=== PATIENT | male | born 1940 | race American Indian/Alaskan Native ===

== ENCOUNTER 2017-11-08 07:41 | Inpatient (IN) | payer MEDICARE ==
--- NOTE | 2017-11-08 07:57 | C.PDOC ---
History Of Present Illness 76-year-old male, PMHx includes Hypertension, presents to the emergency department with complaints of recurring episodes of "feeling woozy." Patient states he has been experiencing these symptoms intermittently for the past two weeks. States he has not experienced these symptoms in the past. Patient is on Amlodopine daily and last dose was yesterday. Denies chest pain, shortness of breath, nausea/vomiting, back pain or any other associated symptoms. 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 PS INTERMIT SX NEW ONSET X 2 WEEKS. NO ASSOC PAIN. ON AMLODIPINE DAILY, LAST DOSE YEST. COMPLIANT W MEDS. DENIES OTHER ASSOC SX. EXAM MOD DIST NONTOXIC HEENT NEG LUNGS CTA B/L NO W/R/R CV RRR, JAMIR STRONG PALP RADIAL NO EDEMA WARM DRY REMAINDER NEG Time Seen by Provider: 11/08/17 07:45 History Per: Patient History/Exam Limitations: no limitations Past Medical History Reviewed: Historical Data, Nursing Documentation, Vital Signs Vital Signs: Last Vital Signs Temp 98.4 F 11/10/17 00:00 Pulse 84 11/10/17 06:00 Resp 14 11/10/17 06:00 BP 177/84 H 11/10/17 05:29 Pulse Ox 97 11/10/17 06:00 Family History: States: Unknown Family Hx Review Of Systems Except As Marked, All Systems Reviewed And Found Negative. Constitutional: Negative for: Fever, Chills Cardiovascular: Negative for: Chest Pain, Palpitations Respiratory: Negative for: Cough, Shortness of Breath Gastrointestinal: Negative for: Vomiting Musculoskeletal: Negative for: Back Pain Neurological: Negative for: Weakness, Numbness, Headache, Dizziness Physical Exam - Physical Exam Appears: Non-toxic, No Acute Distress Skin: Warm, Dry, No Rash Head: Normacephalic Eye(s): bilateral: PERRL, EOMI Nose: Normal Oral Mucosa: Moist Lips: Normal Appearing Neck: Normal ROM Cardiovascular: Rhythm Regular (Bradycardia), No Murmur Respiratory: Normal Breath Sounds, No Accessory Muscle Use Extremity: Normal ROM, No Pedal Edema, No Deformity, No Swelling Pulses: Left Radial: Normal, Right Radial: Normal Neurological/Psych: Oriented x3, Normal Speech ED Course And Treatment - Laboratory Results Result Diagrams: 11/10/17 06:11 11/10/17 06:11 Progress - Re-Evaluation Re-evaluation Note: 11/08/17 07:59 d/w dr rodriguez [employer] PATH[employer]: NOT IMMEDIATELY AVAIL FOR ER AVAIL. ADVISES CONSULT ICU FOR TRANSVENOUS PM 11/08/17 08:03 D/W DR MALDONADO AWARE OF ER FINDINGS ACCEPTS FOR IMMEDIATE ADMISSION TO ICU. RESULTS PENDING. 11/08/17 08:09 PENDING CALLBACK PMD 11/08/17 08:55 D/W DR WOO AWARE OF PT STATUS - Data Reviewed Data Reviewed: Lab, Diagnostic imaging, EKG, Old records - Critical Care Citical Care: Excluding Proc Time Critical Care Time: 90 minutes - Continuity of Care Discussed patient case with:: Patient, PMD Disposition Counseled Patient/Family Regarding: Studies Performed, Diagnosis - Disposition Disposition: HOSPITALIZED Disposition Time: 08:10 Condition: CRITICAL - POA Present On Arrival: None - Clinical Impression Clinical Impression: Third degree AV block, Hypotension - Scribe Statement The provider has reviewed the documentation as recorded by the Scribe (Ksenia Brewer) All medical record entries made by the Scribe were at my direction and personally dictated by me. I have reviewed the chart and agree that the record accurately reflects my personal performance of the history, physical exam, medical decision making, and the department course for this patient. I have also personally directed, reviewed, and agree with the discharge instructions and disposition. Decision To Admit - Pt Status Changed To: Hospital Disposition Of: Inpatient - Admit Certification Admit to Inpatient:: After my assessment, the patient will require hospitalization for at least two midnights. This is because of the severity of symptoms shown, intensity of services needed, and/or the medical risk in this patient being treated as an outpatient. - InPatient: Physician Admission Certification: I certify that this patient requires 2 or more midnights of care for the following reason:: SEE NOTE - . Bed Request Type: ICU Admitting Physician: Aileen Woo Patient Diagnosis: Third degree AV block, Hypotension
[2017-11-08] MEDS ORDERED: Sodium Chloride 0.9% 1,000 ML IV ONE (08:05)
[2017-11-08] MEDS ORDERED: Atropine Sulfate 1 mg/ml Vial (1 ml) IVP ONE (08:08)
--- NOTE | 2017-11-08 08:36 | RAD ---
PROCEDURE: CHEST RADIOGRAPH, 1 VIEW HISTORY: Palpations COMPARISON: None available FINDINGS: LUNGS: Clear. PLEURA: No pneumothorax or pleural fluid seen. CARDIOVASCULAR: Normal. OSSEOUS STRUCTURES: No significant abnormalities. VISUALIZED UPPER ABDOMEN: Normal. OTHER FINDINGS: None. IMPRESSION: No active disease.
[2017-11-08 08:45] LABS: INR 1.1; PROTHROMBIN TIME 12.8 SECONDS (9.7-12.2)
[2017-11-08 08:47] LABS: ALB/GLOB RATIO 1.1 (1.0-2.1); ALBUMIN 3.8 g/dL (3.5-5.0); CALCIUM 9.1 mg/dl (8.6-10.4); GFR AFRICAN-AMERICAN > 60; GFR NON-AFRICAN AMERICAN > 60
[2017-11-08 08:50] LABS: ALT/SGPT 15 U/L (21-72); AST/SGOT 20 U/L (17-59); BLOOD UREA NITROGEN 18 mg/dL (9-20)
[2017-11-08] MEDS ORDERED: Aspirin 325 mg EC Tablets PO STA (09:07)
[2017-11-08] MEDS ORDERED: DOPamine 400mg/250ml D5W 400 MG/250 ML BAG IV ONE (09:08)
[2017-11-08] MEDS ORDERED: DOPamine 400mg/250ml D5W 400 MG/250 ML BAG IV PRN (09:45)
--- NOTE | 2017-11-08 10:16 | RAD ---
HISTORY: transvenous pacemaker placed COMPARISON: Chest radiograph performed approximately 1.5 hours prior FINDINGS: LUNGS: No active pulmonary disease. PLEURA: No significant pleural effusion identified, no pneumothorax apparent. CARDIOVASCULAR: Cardiomediastinal silhouette stably prominent. OSSEOUS STRUCTURES: Unchanged. VISUALIZED UPPER ABDOMEN: Normal. OTHER FINDINGS: New right internal jugular access transvenous pacemaker. IMPRESSION: New right internal jugular access transvenous pacemaker. No pneumothorax. No other significant interval change.
--- NOTE | 2017-11-08 10:36 | CP.PCM.CON ---
<[place] - Last Filed: 11/08/17 10:59> History of Present Illness - History of Present Illness History of Present Illness: PGY-1 Critical Care Consult Note for Dr. Sinclair Reason for consult: 3rd degree heart block This is a 76 year old male with PMHx HTN, DM, HLD who presented complaining of dizziness and vague chest discomfort. This began early this morning after the patient woke up from sleep. Patient denies any exacerbating or relieving factors. Denies chest pain stating that he just feels a very strange sensation on the left side of his chest. Denies palpitations, shortness of breath, abdominal pain. Patient came to the emergency room where he was found to be in third degree heart block. Patient admitted directly to ICU for temporary transvenous pacemaker. PMHx: HTN, DM, HLD PSHx: Unspecified prostate surgery and right knee surgery Allergies: NKDA Social: On and off smoker for over 25 years. Less than 1 ppd. Occasional alcohol. Denies drugs. Lives with . PMD: Dr. Woo Home meds: Of the medications he remembers, he is taking Norvasc, Metformin, Simvastatin, Glimepiride Review of Systems - Constitutional Constitutional: absent: Chills, Fever - EENT Eyes: absent: Change in Vision Ears: absent: Decreased Hearing Nose/Mouth/Throat: absent: Nasal Congestion - Cardiovascular Cardiovascular: Other ("woozy" feeling in the chest). absent: Chest Pain - Respiratory Respiratory: absent: Dyspnea - Gastrointestinal Gastrointestinal: absent: Abdominal Pain - Genitourinary Genitourinary: absent: Dysuria - Musculoskeletal Musculoskeletal: Neck Pain (right sided) - Integumentary Integumentary: absent: Rash - Neurological Neurological: Dizziness. absent: Weakness - Psychiatric Psychiatric: Anxiety - Endocrine Endocrine: absent: Palpitations Past Patient History - Past Social History Smoking Status: Light Smoker < 10 Cigarettes Daily - CARDIAC Hx Hypercholesterolemia: Yes Hx Hypertension: Yes - ENDOCRINE/METABOLIC Hx Diabetes Mellitus Type 2: Yes - PSYCHIATRIC Hx Substance Use: No - SURGICAL HISTORY Hx Surgeries: Yes Hx Orthopedic Surgery: Yes (L knee) Other/Comment: TURP - ANESTHESIA Hx Anesthesia: Yes Hx Anesthesia Reactions: No Meds Allergies/Adverse Reactions: Allergies Allergy/AdvReac Type Severity Reaction Status Date / Time No Known Allergies Allergy Unverified 11/08/17 07:59 - Medications Medications: Current Medications Insulin Human Regular (Novolin R) 0 unit SC ACHS [facility] PRN Reason: Protocol Physical Exam - Constitutional Appears: In Acute Distress (mild distress) - Head Exam Head Exam: ATRAUMATIC, NORMOCEPHALIC - Eye Exam Eye Exam: EOMI, PERRL - ENT Exam ENT Exam: Mucous Membranes Moist - Respiratory Exam Respiratory Exam: Clear to Auscultation Bilateral. absent: Rales, Rhonchi, Wheezes - Cardiovascular Exam Cardiovascular Exam: Bradycardia, +S1, +S2 - GI/Abdominal Exam GI & Abdominal Exam: Normal Bowel Sounds, Soft. absent: Tenderness - Extremities Exam Extremities exam: Positive for: pedal pulses present. Negative for: pedal edema - Neurological Exam Neurological exam: Alert, CN II-XII Intact, Oriented x3 - Psychiatric Exam Psychiatric exam: Normal Affect, Normal Mood - Skin Skin Exam: Dry, Warm Results - Vital Signs Recent Vital Signs: Last Vital Signs Temp 98.1 F 11/08/17 07:52 Pulse 30 L 11/08/17 07:52 Resp 10 L 11/08/17 07:52 BP 73/23 L 11/08/17 07:52 Pulse Ox 100 11/08/17 07:52 - Labs Result Diagrams: 11/08/17 08:29 Labs: Laboratory Results - last 24 hr 11/08/17 11/08/17 08:29 08:29 PT 12.8 H INR 1.1 APTT 21 Sodium 142 Potassium 4.3 Chloride 106 Carbon Dioxide 21 L Anion Gap 20 BUN 18 Creatinine 1.1 Est GFR ( Amer) > 60 Est GFR (Non-Af Amer) > 60 Random Glucose 215 H Calcium 9.1 Total Bilirubin 0.5 AST 20 ALT 15 L Alkaline Phosphatase 56 Troponin I 0.0140 Total Protein 7.4 Albumin 3.8 Globulin 3.6 Albumin/Globulin Ratio 1.1 Assessment & Plan - Assessment and Plan (Free Text) Assessment: This is a 76 year old male with PMHx HTN, DM, HLD who presented complaining of dizziness and vague chest discomfort. 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 Neuro Awake, verbal Cardio Normotensive Holding home Norvasc for now STAT echo Temporary pacemaker inserted EP Dr. Macedo consulted Pulm Saturating well on room air GI Pepcid 20 mg IV daily Carbohydrate consistent diet Endocrine Regular ISS Accuchecks Heme/onc Monitor H/H Prophylaxis Lovenox 40 mg SC daily SCDs Pepcid 20 mg IV daily Seen and discussed with Dr. Sinclair <Roge Sinclair - Last Filed: 11/08/17 16:15> Meds - Medications Medications: Current Medications Enoxaparin Sodium (Lovenox) 90 mg SC Q12 [facility] Insulin Human Regular (Novolin R) 0 unit SC ACHS A[facility] PRN Reason: Protocol Last Admin: 11/08/17 12:16 Dose: 2 unit Results - Vital Signs Recent Vital Signs: Last Vital Signs Temp 99.1 F 11/08/17 16:00 Pulse 67 11/08/17 15:34 Resp 17 11/08/17 15:34 BP 123/72 11/08/17 15:34 Pulse Ox 97 11/08/17 15:34 - Labs Result Diagrams: 11/08/17 12:03 11/08/17 08:29 Labs: Laboratory Results - last 24 hr 11/08/17 11/08/17 11/08/17 08:29 08:29 11:30 WBC RBC Hgb Hct MCV MCH MCHC RDW Plt Count MPV Neut % (Auto) Lymph % (Auto) [place] % (Auto) Eos % (Auto) Baso % (Auto) Neut # (Auto) Lymph # (Auto) [place] # (Auto) Eos # (Auto) Baso # (Auto) PT 12.8 H INR 1.1 APTT 21 Sodium 142 Potassium 4.3 Chloride 106 Carbon Dioxide 21 L Anion Gap 20 BUN 18 Creatinine 1.1 Est GFR ( Amer) > 60 Est GFR (Non-Af Amer) > 60 POC Glucose (mg/dL) 198 H Random Glucose 215 H Calcium 9.1 Total Bilirubin 0.5 AST 20 ALT 15 L Alkaline Phosphatase 56 Troponin I 0.0140 Total Protein 7.4 Albumin 3.8 Globulin 3.6 Albumin/Globulin Ratio 1.1 11/08/17 12:03 WBC 5.6 RBC 3.71 L Hgb 10.7 L Hct 32.3 L MCV 86.9 MCH 28.7 MCHC 33.1 RDW 14.9 H Plt Count 144 MPV 8.4 Neut % (Auto) 79.4 H Lymph % (Auto) 14.0 L [place] % (Auto) 5.4 Eos % (Auto) 0.2 Baso % (Auto) 1.0 Neut # (Auto) 4.4 Lymph # (Auto) 0.8 L [place] # (Auto) 0.3 Eos # (Auto) 0.0 Baso # (Auto) 0.1 PT INR APTT Sodium Potassium Chloride Carbon Dioxide Anion Gap BUN Creatinine Est GFR ( Amer) Est GFR (Non-Af Amer) POC Glucose (mg/dL) Random Glucose Calcium Total Bilirubin AST ALT Alkaline Phosphatase Troponin I Total Protein Albumin Globulin Albumin/Globulin Ratio Attending/Attestation - Attestation I have personally seen and examined this patient.: Yes I have fully participated in the care of the patient.: Yes I have reviewed all pertinent clinical information: Yes Notes (Text): 11/08/17 16:13 patient seen and examined 76-year-old male presented with chest discomfort and found to be in third- degree heart block Status post transvenous pacemaker insertion Hemodynamically stable For permanent pacemaker tomorrow Case discussed with cardiology Continue present treatment
[2017-11-08] MEDS ORDERED: Enoxaparin 40 mg Syringe SC SCH (11:00)
[2017-11-08 12:07] LABS: BASO # 0.1 K/uL (0.0-0.2); EOS % 0.2 % (0.0-4.0); HEMOGLOBIN 10.7 g/dL (12.0-18.0); LYMPH # 0.8 K/uL (1.0-4.3); MEAN CELL VOLUME 86.9 fL (80.0-94.0); MEAN CORPUSCULAR HEMOGLOBIN 28.7 pg (27.0-31.0); MEAN CORPUSCULAR HGB CONC 33.1 g/dL (33.0-37.0); MEAN PLATELET VOLUME 8.4 fL (7.2-11.7); MONO # 0.3 K/uL (0.0-0.8); MONO % 5.4 % (0.0-10.0); NEUT # 4.4 K/uL (1.8-7.0); NEUT % 79.4 % (50.0-75.0); NRBC % 0.1 % (0.0-2.0); RBC 3.71 Mil/uL (4.40-5.90); RED CELL DISTRIBUTION WIDTH 14.9 % (11.5-14.5); WHITE BLOOD COUNT 5.6 K/uL (4.8-10.8)
[2017-11-08] MEDS: (Novolin R) Insulin Human Regular 100 units/ml vial SC SCH ×3 (12:16→22:00)
--- NOTE | 2017-11-08 14:29 | PCM.PROC ---
Procedures - Additional Procedures Additional Procedures: external pacing Progress: Patient signed informed consent for transvenous pacing. Sterile protocol followed and transvenous pacer placed in the right IJ. Patient tolerated the procedure well.
[2017-11-08 16:36] LABS: TROPONIN I 0.034 ng/mL (0.00-0.120)
--- NOTE | 2017-11-08 16:53 | CARD ---
APPROVED REPORT EXAM: Two-dimensional and M-mode echocardiogram with Doppler and color Doppler. Other Information Quality : GoodRhythm : INDICATION Chest Pain 3rd degree heartblock hypotension 2D DIMENSIONS IVSd1.2 (0.7-1.1cm)LVDd5.0 (3.9-5.9cm) PWd1.0 (0.7-1.1cm)LVDs3.9 (2.5-4.0cm) FS (%) 21.0 %LVEF (%)40.0 (>50%) Mitral Valve MV E Upmfzrpb29.7cm/sMV A Znwpkrqv861.6cm/sE/A ratio0.6 TDI E/Lateral E'0.0E/Medial E'0.0 Tricuspid Valve TR Peak Arsfqjmh149pw/sTR Peak Gr.28mmHg LEFT VENTRICLE The left ventricle is normal size. There is borderline concentric left ventricular hypertrophy. The systolic function is mildly impaired. Infero-basal hypokinesis Transmitral Doppler flow pattern is Grade I-abnormal relaxation pattern. RIGHT VENTRICLE The right ventricle is normal size. There is normal right ventricular wall thickness. The right ventricular systolic function is normal. ATRIA The left atrium is borderline dilated. The right atrium size is normal. AORTIC VALVE The aortic valve is moderately thickened. No aortic regurgitation is present. There is no aortic valvular stenosis. MITRAL VALVE The mitral valve is mildly thickened. There is no mitral valve stenosis. Mitral regurgitation is trace. TRICUSPID VALVE The tricuspid valve is normal in structure. There is trace tricuspid regurgitation. GREAT VESSELS The aortic root is normal in size. The IVC was not visualized. PERICARDIAL EFFUSION There is no pericardial effusion. <Conclusion> The left ventricle is normal size. There is borderline concentric left ventricular hypertrophy. The systolic function is mildly impaired. Infero-basal hypokinesis Transmitral Doppler flow pattern is Grade I-abnormal relaxation pattern.
[2017-11-08 17:06] LABS: CK-MB 1.32 ng/mL (0.0-3.38)
--- NOTE | 2017-11-08 19:39 | CP.PCM.CON ---
History of Present Illness - History of Present Illness History of Present Illness: Cardiac EP consult Re: Dizziness AV block Admitted with two week history of intermittent dizziness unrelated to position; denied loss of consciousness headache vomiting diplopia dysarthria palpitations chest pain Past medical history significant for Systemic hypertensipon hyperlipidemia Diabetes Mellitus Thyroid enlargement Past surgery Prostate and knee Smokes; denied substance abuse Retired lives with his Medicaitons: norvasc metformin Exam Afebrile Pulse 60 Paced rhythm Normal venous pressures [employer] goiter; non tender Right IJ transvenous pacemaker Clear lungs ?PMI Varying heart sounds intensity No edema DP ? EKG: sinus tachycardia; high grade AV block; AV dissociation; cRBBB left fascicular block Pacemaker: no underlying rhythm @ 30 beats per minute Complete heart block Pacing capture: 1V rate/amp: 60 at 20ma; sensing at 12 Past Patient History - Past Medical History & Family History Past Medical History?: Yes - Past Social History Smoking Status: Light Smoker < 10 Cigarettes Daily - CARDIAC Hx Hypercholesterolemia: Yes Hx Hypertension: Yes - ENDOCRINE/METABOLIC Hx Diabetes Mellitus Type 2: Yes - MUSCULOSKELETAL/RHEUMATOLOGICAL Hx Falls: No - PSYCHIATRIC Hx Substance Use: No - SURGICAL HISTORY Hx Surgeries: Yes Hx Orthopedic Surgery: Yes (L knee) Other/Comment: TURP - ANESTHESIA Hx Anesthesia: Yes Hx Anesthesia Reactions: No Meds Allergies/Adverse Reactions: Allergies Allergy/AdvReac Type Severity Reaction Status Date / Time No Known Allergies Allergy Unverified 11/08/17 07:59 - Medications Medications: Current Medications Enoxaparin Sodium (Lovenox) 90 mg SC Q12 [facility] Insulin Human Regular (Novolin R) 0 unit SC ACHS ANALI PRN Reason: Protocol Last Admin: 11/08/17 17:33 Dose: Not Given Lisinopril (Zestril) 2.5 mg PO DAILY [facility] Last Admin: 11/08/17 18:22 Dose: 2.5 mg Results - Vital Signs Recent Vital Signs: Last Vital Signs Temp 99.1 F 11/08/17 16:00 Pulse 66 11/08/17 19:10 Resp 17 11/08/17 19:10 BP 127/71 11/08/17 18:34 Pulse Ox 98 11/08/17 19:10 - Labs Result Diagrams: 11/08/17 12:03 11/08/17 08:29 Labs: Laboratory Results - last 24 hr 11/08/17 11/08/17 11/08/17 08:29 08:29 11:30 WBC RBC Hgb Hct MCV MCH MCHC RDW Plt Count MPV Neut % (Auto) Lymph % (Auto) [place] % (Auto) Eos % (Auto) Baso % (Auto) Neut # (Auto) Lymph # (Auto) [place] # (Auto) Eos # (Auto) Baso # (Auto) PT 12.8 H INR 1.1 APTT 21 Sodium 142 Potassium 4.3 Chloride 106 Carbon Dioxide 21 L Anion Gap 20 BUN 18 Creatinine 1.1 Est GFR ( Amer) > 60 Est GFR (Non-Af Amer) > 60 POC Glucose (mg/dL) 198 H Random Glucose 215 H Calcium 9.1 Total Bilirubin 0.5 AST 20 ALT 15 L Alkaline Phosphatase 56 Total Creatine Kinase CK-MB (Mass) Troponin I 0.0140 Total Protein 7.4 Albumin 3.8 Globulin 3.6 Albumin/Globulin Ratio 1.1 11/08/17 11/08/17 11/08/17 12:03 15:57 16:15 WBC 5.6 RBC 3.71 L Hgb 10.7 L Hct 32.3 L MCV 86.9 MCH 28.7 MCHC 33.1 RDW 14.9 H Plt Count 144 MPV 8.4 Neut % (Auto) 79.4 H Lymph % (Auto) 14.0 L [place] % (Auto) 5.4 Eos % (Auto) 0.2 Baso % (Auto) 1.0 Neut # (Auto) 4.4 Lymph # (Auto) 0.8 L [place] # (Auto) 0.3 Eos # (Auto) 0.0 Baso # (Auto) 0.1 PT INR APTT Sodium Potassium Chloride Carbon Dioxide Anion Gap BUN Creatinine Est GFR ( Amer) Est GFR (Non-Af Amer) POC Glucose (mg/dL) 86 Random Glucose Calcium Total Bilirubin AST ALT Alkaline Phosphatase Total Creatine Kinase 86 CK-MB (Mass) 1.32 Troponin I 0.0340 Total Protein Albumin Globulin Albumin/Globulin Ratio Assessment & Plan - Assessment and Plan (Free Text) Assessment: Mr. Lowe presented with dizziness and high grade AV block on a background of an underlying conduction abnormality suggestive of chronicity and irreversibility The etiogenesis is likely degenerative; vascular risk factors warrant exclusion of coronary disease; thyroid disease is likely incidental and or have a tangential role If the AV block persists he would be a candidate for a permanent pacemaker assuming normal LV systolic function Of note he is dependant on pacing; would be diligent in preserving the lead position and avoid excessive arm/neck movements Plan: Echocardiogram Thyroid function Cardiac cath Rest as outlined above
--- NOTE | 2017-11-08 21:47 | CP.PCM.CON ---
History of Present Illness - History of Present Illness History of Present Illness: 76 Male with hx of HTN, DM 2, hyperlipidemia admitted with Complete Heart Block Sx of dizziness since last 2 weeks TVP placed by Dr. Sinclair Patient hemodynamically stbale ECHO: Inferior wall hypokinesis EP Consult with Dr. Macedo appreciated For cath tomorrow PMHx: HTN, DM, HLD PSHx: Unspecified prostate surgery and right knee surgery Allergies: NKDA Social: On and off smoker for over 25 years. Less than 1 ppd. Occasional alcohol. Denies drugs. Lives with . PMD: Dr. Woo Home meds: Of the medications he remembers, he is taking Norvasc, Metformin, Simvastatin, Glimepiride Review of Systems - Constitutional Constitutional: absent: Chills, Fever - EENT Eyes: absent: Change in Vision Ears: absent: Decreased Hearing Nose/Mouth/Throat: absent: Nasal Congestion - Cardiovascular Cardiovascular: Other ("woozy" feeling in the chest). absent: Chest Pain - Respiratory Respiratory: absent: Dyspnea - Gastrointestinal Gastrointestinal: absent: Abdominal Pain - Genitourinary Genitourinary: absent: Dysuria - Musculoskeletal Musculoskeletal: Neck Pain (right sided) - Integumentary Integumentary: absent: Rash - Neurological Neurological: Dizziness. absent: Weakness - Psychiatric Psychiatric: Anxiety - Endocrine Endocrine: absent: Palpitations Physical Exam - Constitutional Appears: In Acute Distress (mild distress) - Head Exam Head Exam: ATRAUMATIC, NORMOCEPHALIC - Eye Exam Eye Exam: EOMI, PERRL - ENT Exam ENT Exam: Mucous Membranes Moist - Respiratory Exam Respiratory Exam: Clear to Auscultation Bilateral. absent: Rales, Rhonchi, Wheezes - Cardiovascular Exam Cardiovascular Exam: Bradycardia, +S1, +S2 - GI/Abdominal Exam GI & Abdominal Exam: Normal Bowel Sounds, Soft. absent: Tenderness - Extremities Exam Extremities exam: Positive for: pedal pulses present. Negative for: pedal edema - Neurological Exam Neurological exam: Alert, CN II-XII Intact, Oriented x3 - Psychiatric Exam Psychiatric exam: Normal Affect, Normal Mood - Skin Skin Exam: Dry, Warm Past Patient History - Past Medical History & Family History Past Medical History?: Yes - Past Social History Smoking Status: Light Smoker < 10 Cigarettes Daily - CARDIAC Hx Hypercholesterolemia: Yes Hx Hypertension: Yes - ENDOCRINE/METABOLIC Hx Diabetes Mellitus Type 2: Yes - MUSCULOSKELETAL/RHEUMATOLOGICAL Hx Falls: No - PSYCHIATRIC Hx Substance Use: No - SURGICAL HISTORY Hx Surgeries: Yes Hx Orthopedic Surgery: Yes (L knee) Other/Comment: TURP - ANESTHESIA Hx Anesthesia: Yes Hx Anesthesia Reactions: No Meds Allergies/Adverse Reactions: Allergies Allergy/AdvReac Type Severity Reaction Status Date / Time No Known Allergies Allergy Unverified 11/08/17 07:59 - Medications Medications: Current Medications Enoxaparin Sodium (Lovenox) 90 mg SC Q12 [facility] Insulin Human Regular (Novolin R) 0 unit SC ACHS ANALI PRN Reason: Protocol Last Admin: 11/08/17 17:33 Dose: Not Given Lisinopril (Zestril) 2.5 mg PO DAILY [facility] Last Admin: 11/08/17 18:22 Dose: 2.5 mg Results - Vital Signs Recent Vital Signs: Last Vital Signs Temp 99.1 F 11/08/17 16:00 Pulse 66 11/08/17 19:10 Resp 17 11/08/17 19:10 BP 127/71 11/08/17 18:34 Pulse Ox 98 11/08/17 19:10 - Labs Result Diagrams: 11/08/17 12:03 11/08/17 08:29 Labs: Laboratory Results - last 24 hr 11/08/17 11/08/17 11/08/17 08:29 08:29 11:30 WBC RBC Hgb Hct MCV MCH MCHC RDW Plt Count MPV Neut % (Auto) Lymph % (Auto) [place] % (Auto) Eos % (Auto) Baso % (Auto) Neut # (Auto) Lymph # (Auto) [place] # (Auto) Eos # (Auto) Baso # (Auto) PT 12.8 H INR 1.1 APTT 21 Sodium 142 Potassium 4.3 Chloride 106 Carbon Dioxide 21 L Anion Gap 20 BUN 18 Creatinine 1.1 Est GFR ( Amer) > 60 Est GFR (Non-Af Amer) > 60 POC Glucose (mg/dL) 198 H Random Glucose 215 H Calcium 9.1 Total Bilirubin 0.5 AST 20 ALT 15 L Alkaline Phosphatase 56 Total Creatine Kinase CK-MB (Mass) Troponin I 0.0140 Total Protein 7.4 Albumin 3.8 Globulin 3.6 Albumin/Globulin Ratio 1.1 11/08/17 11/08/17 11/08/17 12:03 15:57 16:15 WBC 5.6 RBC 3.71 L Hgb 10.7 L Hct 32.3 L MCV 86.9 MCH 28.7 MCHC 33.1 RDW 14.9 H Plt Count 144 MPV 8.4 Neut % (Auto) 79.4 H Lymph % (Auto) 14.0 L [place] % (Auto) 5.4 Eos % (Auto) 0.2 Baso % (Auto) 1.0 Neut # (Auto) 4.4 Lymph # (Auto) 0.8 L [place] # (Auto) 0.3 Eos # (Auto) 0.0 Baso # (Auto) 0.1 PT INR APTT Sodium Potassium Chloride Carbon Dioxide Anion Gap BUN Creatinine Est GFR ( Amer) Est GFR (Non-Af Amer) POC Glucose (mg/dL) 86 Random Glucose Calcium Total Bilirubin AST ALT Alkaline Phosphatase Total Creatine Kinase 86 CK-MB (Mass) 1.32 Troponin I 0.0340 Total Protein Albumin Globulin Albumin/Globulin Ratio 11/08/17 21:06 WBC RBC Hgb Hct MCV MCH MCHC RDW Plt Count MPV Neut % (Auto) Lymph % (Auto) [place] % (Auto) Eos % (Auto) Baso % (Auto) Neut # (Auto) Lymph # (Auto) [place] # (Auto) Eos # (Auto) Baso # (Auto) PT INR APTT Sodium Potassium Chloride Carbon Dioxide Anion Gap BUN Creatinine Est GFR ( Amer) Est GFR (Non-Af Amer) POC Glucose (mg/dL) 211 H Random Glucose Calcium Total Bilirubin AST ALT Alkaline Phosphatase Total Creatine Kinase CK-MB (Mass) Troponin I Total Protein Albumin Globulin Albumin/Globulin Ratio Assessment & Plan - Assessment and Plan (Free Text) Assessment: This is a 76 year old male with PMHx HTN, DM, HLD who presented complaining of dizziness and vague chest discomfort. 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 Neuro Awake, verbal Cardio TVP in place Cath in am Pulm Saturating well on room air GI Pepcid 20 mg IV daily Carbohydrate consistent diet Endocrine Regular ISS Accuchecks Heme/onc Monitor H/H Prophylaxis Lovenox 40 mg SC daily SCDs Pepcid 20 mg IV daily
[2017-11-08] MEDS: Enoxaparin 100 mg Syringe SC SCH (22:00)
[2017-11-09 01:17] LABS: CK-MB 1.21 ng/mL (0.0-3.38)
[2017-11-09 01:19] LABS: TROPONIN I 0.038 ng/mL (0.00-0.120)
[2017-11-09 06:12] LABS: BASO % 0.5 % (0.0-2.0); EOS % 0.8 % (0.0-4.0); HEMOGLOBIN 10.2 g/dL (12.0-18.0); LYMPH # 1.6 K/uL (1.0-4.3); LYMPH % 29.9 % (20.0-40.0); MEAN CELL VOLUME 86.6 fL (80.0-94.0); MEAN CORPUSCULAR HEMOGLOBIN 28.7 pg (27.0-31.0); MEAN CORPUSCULAR HGB CONC 33.2 g/dL (33.0-37.0); MEAN PLATELET VOLUME 8.8 fL (7.2-11.7); MONO # 0.6 K/uL (0.0-0.8); MONO % 11.3 % (0.0-10.0); NEUT # 3.1 K/uL (1.8-7.0); NEUT % 57.5 % (50.0-75.0); NRBC % 0.1 % (0.0-2.0); RBC 3.54 Mil/uL (4.40-5.90); RED CELL DISTRIBUTION WIDTH 14.9 % (11.5-14.5); WHITE BLOOD COUNT 5.3 K/uL (4.8-10.8)
--- NOTE | 2017-11-09 06:26 | HP ---
HISTORY OF PRESENT ILLNESS: Mr. Lowe is a 76-year-old male admitted to the hospital with a chief complaint of weakness, fatigue, tiredness, dizziness. The patient was found to be in Afib. Patient admitted to the hospital. Patient has a pacemaker placed, and the patient has hypertension and he is a nonsmoker. PHYSICAL EXAMINATION: GENERAL: The patient is awake, alert, and oriented. VITAL SIGNS: Pulse is 70. HEENT: Within normal limits. NECK: Supple. CARDIOPULMONARY: Symmetrical. HEART: Irregular. ABDOMEN: Soft. EXTREMITIES: No edema. ASSESSMENT AND PLAN: Status post pacemaker in the right side of the neck. The patient is suffering from right heart block. The patient admitted to ICU monitoring. Cardiology consult. Aileen Woo MD
[2017-11-09 06:30] LABS: ALBUMIN 3.1 g/dL (3.5-5.0); ALT/SGPT 11 U/L (21-72); AST/SGOT 16 U/L (17-59); BLOOD UREA NITROGEN 24 mg/dL (9-20); CALCIUM 8.4 mg/dl (8.6-10.4); GFR AFRICAN-AMERICAN > 60; GFR NON-AFRICAN AMERICAN > 60
[2017-11-09] MEDS: (Novolin R) Insulin Human Regular 100 units/ml vial SC SCH ×4 (07:30→21:45)
[2017-11-09] MEDS ORDERED: Phenylephrine 10 mg/ml Inj ONE (08:50)
[2017-11-09] MEDS ORDERED: Midazolam 2 MG/2 ML VIAL ONE ×3 (08:51→19:45)
[2017-11-09] MEDS ORDERED: Nitroglycerin 50mg in D5W 50 MG/250 ML BOTTLE IV ONE (08:51)
[2017-11-09] MEDS ORDERED: Iohexol 350mg/ml 100 ML ONE (09:22)
--- NOTE | 2017-11-09 10:08 | CP.PCM.PN ---
Subjective - Date & Time of Evaluation Date of Evaluation: 11/09/17 Time of Evaluation: 10:05 - Subjective Subjective: Patient s/p Cath Chronic CAD tiffany requires some coronary intervention soon But this CAD is the unlikely etiology for his heart block. Recommend PPM as soon as possible DM2 HTN Dr. Macedo to insert PPM today Continue NPO Strict bed rest for 6 hours Objective - Vital Signs/Intake and Output Vital Signs (last 24 hours): Temp Pulse Resp BP Pulse Ox 98.3 F 69 20 130/70 98 11/09/17 08:00 11/09/17 08:00 11/09/17 08:00 11/09/17 08:00 11/09/17 08:00 Intake and Output: 11/09/17 11/09/17 06:59 18:59 Output Total 400 Balance -400 - Medications Medications: Current Medications Enoxaparin Sodium (Lovenox) 90 mg SC Q12 [facility] Last Admin: 11/08/17 22:00 Dose: 90 mg Insulin Human Regular (Novolin R) 0 unit SC ACHS [facility] PRN Reason: Protocol Last Admin: 11/08/17 22:00 Dose: Not Given Lisinopril (Zestril) 2.5 mg PO DAILY [facility] Last Admin: 11/08/17 18:22 Dose: 2.5 mg - Labs Labs: 11/09/17 06:04 11/09/17 06:03 PT 12.8 SECONDS (9.7-12.2) H 11/08/17 08:29 INR 1.1 11/08/17 08:29 APTT 21 SECONDS (21-34) 11/08/17 08:29
--- NOTE | 2017-11-09 12:16 | CP.CCUPN ---
<Frederick Green - Last Filed: 11/09/17 16:16> CCU Subjective - Physician Review Subjective (Free Text): 11/09/17 12:13 Patient seen and examined at bedside. Patient has no complaints at this time. He continues to feel better after having the temporary pacemaker. Patient is NPO for cardiac cath. CCU Objective - Vital Signs / Intake & Output Vital Signs (Last 4 hours): Vital Signs Pulse Resp BP Pulse Ox 11/09/17 10:18 120/81 11/09/17 10:15 68 20 120/81 98 11/09/17 08:34 68 17 130/70 98 Intake and Output (Last 8hrs): Intake & Output 11/08/17 11/09/17 11/09/17 22:59 06:59 14:59 Output Total 400 Balance -400 Weight 187 lb Output: Urine 400 Urine, Voided 400 - Physical Exam Head: Positive for: Atraumatic, Normocephalic Pupils: Positive for: PERRL Extroacular Muscles: Positive for: EOMI Conjunctiva: Positive for: Normal Mouth: Positive for: Moist Mucous Membranes Respiratory/Chest: Positive for: Clear to Auscultation. Negative for: Wheezes, Rales, Rhonchi Cardiovascular: Positive for: Regular Rate and Rhythm, Normal S1, S2 Abdomen: Positive for: Normal Bowel Sounds. Negative for: Tenderness Upper Extremity: Positive for: Normal Inspection Lower Extremity: Positive for: Normal Inspection Neurological: Positive for: GCS=15 Skin: Positive for: Warm, Dry Psychiatric: Positive for: Alert, Oriented x 3 - Medications Active Medications: Active Medications Generic Name Dose Route Start Last Admin Trade Name César PRN Reason Stop Dose Admin Aspirin 81 mg 11/10/17 10:00 Ecotrin PO DAILY [facility] Enoxaparin Sodium 90 mg 11/08/17 22:00 11/08/17 22:00 Lovenox SC 90 mg Q12 [facility] Administration Insulin Human Regular 0 unit 11/08/17 11:30 11/08/17 22:00 Novolin R SC Not Given ACHS [facility] Protocol Lisinopril 2.5 mg 11/08/17 18:30 11/08/17 18:22 Zestril PO 2.5 mg DAILY [facility] Administration Rosuvastatin Calcium 10 mg 11/09/17 22:00 Crestor PO HS [facility] - Patient Studies Lab Studies: Lab Studies 11/09/17 11/09/17 11/09/17 Range/Units 11:09 07:22 06:04 WBC 5.3 (4.8-10.8) K/uL RBC 3.54 L (4.40-5.90) Mil/uL Hgb 10.2 L (12.0-18.0) g/dL Hct 30.6 L (35.0-51.0) % MCV 86.6 (80.0-94.0) fL MCH 28.7 (27.0-31.0) pg MCHC 33.2 (33.0-37.0) g/dL RDW 14.9 H (11.5-14.5) % Plt Count 142 (130-400) K/uL MPV 8.8 (7.2-11.7) fL Neut % (Auto) 57.5 (50.0-75.0) % Lymph % (Auto) 29.9 (20.0-40.0) % [place] % (Auto) 11.3 H (0.0-10.0) % Eos % (Auto) 0.8 (0.0-4.0) % Baso % (Auto) 0.5 (0.0-2.0) % Neut # (Auto) 3.1 (1.8-7.0) K/uL Lymph # (Auto) 1.6 (1.0-4.3) K/uL [place] # (Auto) 0.6 (0.0-0.8) K/uL Eos # (Auto) 0.0 (0.0-0.7) K/uL Baso # (Auto) 0.0 (0.0-0.2) K/uL Sodium (132-148) mmol/L Potassium (3.6-5.2) mmol/L Chloride (98-107) mmol/L Carbon Dioxide (22-30) mmol/L Anion Gap (10-20) BUN (9-20) mg/dL Creatinine (0.8-1.5) mg/dL Est GFR ( Amer) Est GFR (Non-Af Amer) POC Glucose (mg/dL) 120 H 126 H (65-110) mg/dL Random Glucose (75-110) mg/dL Calcium (8.6-10.4) mg/dl Phosphorus (2.5-4.5) mg/dL Magnesium (1.6-2.3) mg/dL Total Bilirubin (0.2-1.3) mg/dL AST (17-59) U/L ALT (21-72) U/L Alkaline Phosphatase (38-126) U/L Total Creatine Kinase (55-170) U/L CK-MB (Mass) (0.0-3.38) ng/mL Troponin I (0.00-0.120) ng/mL Total Protein (6.3-8.3) g/dL Albumin (3.5-5.0) g/dL Globulin (2.2-3.9) gm/dL Albumin/Globulin Ratio (1.0-2.1) 11/09/17 11/09/17 11/08/17 Range/Units 06:03 00:45 21:06 WBC (4.8-10.8) K/uL RBC (4.40-5.90) Mil/uL Hgb (12.0-18.0) g/dL Hct (35.0-51.0) % MCV (80.0-94.0) fL MCH (27.0-31.0) pg MCHC (33.0-37.0) g/dL RDW (11.5-14.5) % Plt Count (130-400) K/uL MPV (7.2-11.7) fL Neut % (Auto) (50.0-75.0) % Lymph % (Auto) (20.0-40.0) % [place] % (Auto) (0.0-10.0) % Eos % (Auto) (0.0-4.0) % Baso % (Auto) (0.0-2.0) % Neut # (Auto) (1.8-7.0) K/uL Lymph # (Auto) (1.0-4.3) K/uL [place] # (Auto) (0.0-0.8) K/uL Eos # (Auto) (0.0-0.7) K/uL Baso # (Auto) (0.0-0.2) K/uL Sodium 143 (132-148) mmol/L Potassium 4.3 (3.6-5.2) mmol/L Chloride 110 H (98-107) mmol/L Carbon Dioxide 23 (22-30) mmol/L Anion Gap 15 (10-20) BUN 24 H (9-20) mg/dL Creatinine 1.1 (0.8-1.5) mg/dL Est GFR ( Amer) > 60 Est GFR (Non-Af Amer) > 60 POC Glucose (mg/dL) 211 H (65-110) mg/dL Random Glucose 133 H (75-110) mg/dL Calcium 8.4 L (8.6-10.4) mg/dl Phosphorus 3.4 (2.5-4.5) mg/dL Magnesium 1.7 (1.6-2.3) mg/dL Total Bilirubin 0.3 (0.2-1.3) mg/dL AST 16 L (17-59) U/L ALT 11 L D (21-72) U/L Alkaline Phosphatase 48 (38-126) U/L Total Creatine Kinase 72 (55-170) U/L CK-MB (Mass) 1.21 (0.0-3.38) ng/mL Troponin I 0.0380 (0.00-0.120) ng/mL Total Protein 6.1 L (6.3-8.3) g/dL Albumin 3.1 L (3.5-5.0) g/dL Globulin 3.0 (2.2-3.9) gm/dL Albumin/Globulin Ratio 1.0 (1.0-2.1) 11/08/17 11/08/17 Range/Units 16:15 15:57 WBC (4.8-10.8) K/uL RBC (4.40-5.90) Mil/uL Hgb (12.0-18.0) g/dL Hct (35.0-51.0) % MCV (80.0-94.0) fL MCH (27.0-31.0) pg MCHC (33.0-37.0) g/dL RDW (11.5-14.5) % Plt Count (130-400) K/uL MPV (7.2-11.7) fL Neut % (Auto) (50.0-75.0) % Lymph % (Auto) (20.0-40.0) % [place] % (Auto) (0.0-10.0) % Eos % (Auto) (0.0-4.0) % Baso % (Auto) (0.0-2.0) % Neut # (Auto) (1.8-7.0) K/uL Lymph # (Auto) (1.0-4.3) K/uL [place] # (Auto) (0.0-0.8) K/uL Eos # (Auto) (0.0-0.7) K/uL Baso # (Auto) (0.0-0.2) K/uL Sodium (132-148) mmol/L Potassium (3.6-5.2) mmol/L Chloride (98-107) mmol/L Carbon Dioxide (22-30) mmol/L Anion Gap (10-20) BUN (9-20) mg/dL Creatinine (0.8-1.5) mg/dL Est GFR ( Amer) Est GFR (Non-Af Amer) POC Glucose (mg/dL) 86 (65-110) mg/dL Random Glucose (75-110) mg/dL Calcium (8.6-10.4) mg/dl Phosphorus (2.5-4.5) mg/dL Magnesium (1.6-2.3) mg/dL Total Bilirubin (0.2-1.3) mg/dL AST (17-59) U/L ALT (21-72) U/L Alkaline Phosphatase (38-126) U/L Total Creatine Kinase 86 (55-170) U/L CK-MB (Mass) 1.32 (0.0-3.38) ng/mL Troponin I 0.0340 (0.00-0.120) ng/mL Total Protein (6.3-8.3) g/dL Albumin (3.5-5.0) g/dL Globulin (2.2-3.9) gm/dL Albumin/Globulin Ratio (1.0-2.1) Laboratory Results - last 24 hr 11/08/17 11/08/17 11/08/17 15:57 16:15 21:06 WBC RBC Hgb Hct MCV MCH MCHC RDW Plt Count MPV Neut % (Auto) Lymph % (Auto) [place] % (Auto) Eos % (Auto) Baso % (Auto) Neut # (Auto) Lymph # (Auto) [place] # (Auto) Eos # (Auto) Baso # (Auto) Sodium Potassium Chloride Carbon Dioxide Anion Gap BUN Creatinine Est GFR ( Amer) Est GFR (Non-Af Amer) POC Glucose (mg/dL) 86 211 H Random Glucose Calcium Phosphorus Magnesium Total Bilirubin AST ALT Alkaline Phosphatase Total Creatine Kinase 86 CK-MB (Mass) 1.32 Troponin I 0.0340 Total Protein Albumin Globulin Albumin/Globulin Ratio 11/09/17 11/09/17 11/09/17 00:45 06:03 06:04 WBC 5.3 RBC 3.54 L Hgb 10.2 L Hct 30.6 L MCV 86.6 MCH 28.7 MCHC 33.2 RDW 14.9 H Plt Count 142 MPV 8.8 Neut % (Auto) 57.5 Lymph % (Auto) 29.9 [place] % (Auto) 11.3 H Eos % (Auto) 0.8 Baso % (Auto) 0.5 Neut # (Auto) 3.1 Lymph # (Auto) 1.6 [place] # (Auto) 0.6 Eos # (Auto) 0.0 Baso # (Auto) 0.0 Sodium 143 Potassium 4.3 Chloride 110 H Carbon Dioxide 23 Anion Gap 15 BUN 24 H Creatinine 1.1 Est GFR ( Amer) > 60 Est GFR (Non-Af Amer) > 60 POC Glucose (mg/dL) Random Glucose 133 H Calcium 8.4 L Phosphorus 3.4 Magnesium 1.7 Total Bilirubin 0.3 AST 16 L ALT 11 L D Alkaline Phosphatase 48 Total Creatine Kinase 72 CK-MB (Mass) 1.21 Troponin I 0.0380 Total Protein 6.1 L Albumin 3.1 L Globulin 3.0 Albumin/Globulin Ratio 1.0 11/09/17 11/09/17 07:22 11:09 WBC RBC Hgb Hct MCV MCH MCHC RDW Plt Count MPV Neut % (Auto) Lymph % (Auto) [place] % (Auto) Eos % (Auto) Baso % (Auto) Neut # (Auto) Lymph # (Auto) [place] # (Auto) Eos # (Auto) Baso # (Auto) Sodium Potassium Chloride Carbon Dioxide Anion Gap BUN Creatinine Est GFR ( Amer) Est GFR (Non-Af Amer) POC Glucose (mg/dL) 126 H 120 H Random Glucose Calcium Phosphorus Magnesium Total Bilirubin AST ALT Alkaline Phosphatase Total Creatine Kinase CK-MB (Mass) Troponin I Total Protein Albumin Globulin Albumin/Globulin Ratio Fingerstick Blood Sugar Results: 126 Critical Care Progress Note - Nutrition Nutrition: Nutrition Category Date Time Status NPO Diet [DIET] Diets 11/09/17 Breakfast Active Assessment/Plan - Assessment and Plan (Free Text) Assessment: This is a 76 year old male with PMHx HTN, DM, HLD who presented complaining of dizziness and vague chest discomfort. 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 Temporary transvenous pacer placed on 11/08/17. Patient underwent cardiac cath with Dr. Haynes who discovered chronic coronary artery disease. He does not need emergent stenting but would benefit from permanent pacemaker. Neuro Awake, verbal Cardio Normotensive Holding home Norvasc for now Lisinopril 2.5 mg PO daily Echo shows EF 40% and hypokinesis Temporary pacemaker inserted on 11/08/17 Patient is set for permanent pacemaker today Pulm Saturating well on room air GI Pepcid 20 mg IV daily Carbohydrate consistent diet Endocrine Regular ISS Accuchecks Heme/onc Monitor H/H Patient with history of DVT Ultrasound performed and positive on the left side for DVT. Will resume therapeutic anticoagulation when deemed ok by cardiology. Prophylaxis Holding anticoagulation due to procedures Pepcid 20 mg IV daily Discussed with Dr. Perry <Beto Perry - Last Filed: 11/10/17 13:37> CCU Objective - Vital Signs / Intake & Output Vital Signs (Last 4 hours): Vital Signs Pulse Resp BP Pulse Ox 11/10/17 12:56 82 11 L 120/87 96 11/10/17 11:56 81 21 136/87 99 11/10/17 11:21 76 15 128/77 98 11/10/17 09:57 85 20 135/81 83 L Intake and Output (Last 8hrs): Intake & Output 11/09/17 11/10/17 11/10/17 22:59 06:59 14:59 Intake Total 350 0 700 Output Total 575 1050 400 Balance -225 -1050 300 Weight 196 lb Intake: IV 200 Intake, IV Amount 0 0 100 Right Hand 0 0 100 Oral 150 0 600 Output: Urine 275 1050 400 Urine, Voided 275 1050 400 Stool 0 0 Other 300 Other: # Voids Urine, Voided 1 - Medications Active Medications: Active Medications Generic Name Dose Route Start Last Admin Trade Name Freq PRN Reason Stop Dose Admin Acetaminophen 650 mg 11/10/17 13:34 Tylenol 325mg Tab PO Q6 PRN Pain, moderate (4-7) Aspirin 81 mg 11/10/17 10:00 11/10/17 09:10 Ecotrin PO 81 mg DAILY [facility] Administration Enoxaparin Sodium 90 mg 11/08/17 22:00 11/08/17 22:00 Lovenox SC 90 mg Q12 [facility] Administration Cefazolin Sodium 1 gm/ Sodium 100 mls @ 100 mls/hr 11/10/17 10:00 11/10/17 10 :55 Chloride IVPB 11/11/17 02:59 100 mls/hr Q8H [facility] Administration Protocol Insulin Human Regular 0 unit 11/08/17 11:30 11/10/17 12:01 Novolin R SC 2 unit ACHS [facility] Administration Protocol Lisinopril 2.5 mg 11/08/17 18:30 11/10/17 09:10 Zestril PO 2.5 mg DAILY [facility] Administration Rosuvastatin Calcium 10 mg 11/09/17 22:00 11/09/17 22:02 Crestor PO 10 mg HS [facility] Administration - Patient Studies Lab Studies: Microbiology Studies 11/08/17 12:20 MRSA Culture (Admit) - Final Nose MRSA NOT DETECTED Lab Studies 11/10/17 11/10/17 11/10/17 Range/Units 11:43 07:48 06:11 WBC (4.8-10.8) K/uL RBC (4.40-5.90) Mil/uL Hgb (12.0-18.0) g/dL Hct (35.0-51.0) % MCV (80.0-94.0) fL MCH (27.0-31.0) pg MCHC (33.0-37.0) g/dL RDW (11.5-14.5) % Plt Count (130-400) K/uL MPV (7.2-11.7) fL Neut % (Auto) (50.0-75.0) % Lymph % (Auto) (20.0-40.0) % [place] % (Auto) (0.0-10.0) % Eos % (Auto) (0.0-4.0) % Baso % (Auto) (0.0-2.0) % Neut # (Auto) (1.8-7.0) K/uL Lymph # (Auto) (1.0-4.3) K/uL [place] # (Auto) (0.0-0.8) K/uL Eos # (Auto) (0.0-0.7) K/uL Baso # (Auto) (0.0-0.2) K/uL Sodium (132-148) mmol/L Potassium (3.6-5.2) mmol/L Chloride (98-107) mmol/L Carbon Dioxide (22-30) mmol/L Anion Gap (10-20) BUN (9-20) mg/dL Creatinine (0.8-1.5) mg/dL Est GFR ( Amer) Est GFR (Non-Af Amer) POC Glucose (mg/dL) 170 H 127 H (65-110) mg/dL Random Glucose (75-110) mg/dL Calcium (8.6-10.4) mg/dl Phosphorus (2.5-4.5) mg/dL Magnesium (1.6-2.3) mg/dL Total Bilirubin (0.2-1.3) mg/dL AST (17-59) U/L ALT (21-72) U/L Alkaline Phosphatase (38-126) U/L Total Protein (6.3-8.3) g/dL Albumin (3.5-5.0) g/dL Globulin (2.2-3.9) gm/dL Albumin/Globulin Ratio (1.0-2.1) Free T4 0.93 (0.78-2.19) ng/dL TSH 3rd Generation (0.46-4.68) mIU/L 11/10/17 11/10/17 11/09/17 Range/Units 06:11 06:11 21:12 WBC 6.8 (4.8-10.8) K/uL RBC 3.72 L (4.40-5.90) Mil/uL Hgb 10.7 L (12.0-18.0) g/dL Hct 32.4 L (35.0-51.0) % MCV 87.1 (80.0-94.0) fL MCH 28.8 (27.0-31.0) pg MCHC 33.0 (33.0-37.0) g/dL RDW 14.7 H (11.5-14.5) % Plt Count 124 L (130-400) K/uL MPV 9.0 (7.2-11.7) fL Neut % (Auto) 69.1 (50.0-75.0) % Lymph % (Auto) 19.3 L (20.0-40.0) % [place] % (Auto) 10.3 H (0.0-10.0) % Eos % (Auto) 0.7 (0.0-4.0) % Baso % (Auto) 0.6 (0.0-2.0) % Neut # (Auto) 4.7 (1.8-7.0) K/uL Lymph # (Auto) 1.3 (1.0-4.3) K/uL [place] # (Auto) 0.7 (0.0-0.8) K/uL Eos # (Auto) 0.0 (0.0-0.7) K/uL Baso # (Auto) 0.0 (0.0-0.2) K/uL Sodium 141 (132-148) mmol/L Potassium 4.3 (3.6-5.2) mmol/L Chloride 105 (98-107) mmol/L Carbon Dioxide 25 (22-30) mmol/L Anion Gap 15 (10-20) BUN 16 (9-20) mg/dL Creatinine 0.9 (0.8-1.5) mg/dL Est GFR ( Amer) > 60 Est GFR (Non-Af Amer) > 60 POC Glucose (mg/dL) 111 H (65-110) mg/dL Random Glucose 114 H (75-110) mg/dL Calcium 9.0 (8.6-10.4) mg/dl Phosphorus 3.4 (2.5-4.5) mg/dL Magnesium 1.6 (1.6-2.3) mg/dL Total Bilirubin 0.4 (0.2-1.3) mg/dL AST 15 L (17-59) U/L ALT 9 L (21-72) U/L Alkaline Phosphatase 61 (38-126) U/L Total Protein 6.7 (6.3-8.3) g/dL Albumin 3.5 (3.5-5.0) g/dL Globulin 3.3 (2.2-3.9) gm/dL Albumin/Globulin Ratio 1.1 (1.0-2.1) Free T4 (0.78-2.19) ng/dL TSH 3rd Generation 0.43 L (0.46-4.68) mIU/L 11/09/17 Range/Units 16:11 WBC (4.8-10.8) K/uL RBC (4.40-5.90) Mil/uL Hgb (12.0-18.0) g/dL Hct (35.0-51.0) % MCV (80.0-94.0) fL MCH (27.0-31.0) pg MCHC (33.0-37.0) g/dL RDW (11.5-14.5) % Plt Count (130-400) K/uL MPV (7.2-11.7) fL Neut % (Auto) (50.0-75.0) % Lymph % (Auto) (20.0-40.0) % [place] % (Auto) (0.0-10.0) % Eos % (Auto) (0.0-4.0) % Baso % (Auto) (0.0-2.0) % Neut # (Auto) (1.8-7.0) K/uL Lymph # (Auto) (1.0-4.3) K/uL [place] # (Auto) (0.0-0.8) K/uL Eos # (Auto) (0.0-0.7) K/uL Baso # (Auto) (0.0-0.2) K/uL Sodium (132-148) mmol/L Potassium (3.6-5.2) mmol/L Chloride (98-107) mmol/L Carbon Dioxide (22-30) mmol/L Anion Gap (10-20) BUN (9-20) mg/dL Creatinine (0.8-1.5) mg/dL Est GFR ( Amer) Est GFR (Non-Af Amer) POC Glucose (mg/dL) 102 (65-110) mg/dL Random Glucose (75-110) mg/dL Calcium (8.6-10.4) mg/dl Phosphorus (2.5-4.5) mg/dL Magnesium (1.6-2.3) mg/dL Total Bilirubin (0.2-1.3) mg/dL AST (17-59) U/L ALT (21-72) U/L Alkaline Phosphatase (38-126) U/L Total Protein (6.3-8.3) g/dL Albumin (3.5-5.0) g/dL Globulin (2.2-3.9) gm/dL Albumin/Globulin Ratio (1.0-2.1) Free T4 (0.78-2.19) ng/dL TSH 3rd Generation (0.46-4.68) mIU/L Laboratory Results - last 24 hr 11/09/17 11/09/17 11/10/17 16:11 21:12 06:11 WBC 6.8 RBC 3.72 L Hgb 10.7 L Hct 32.4 L MCV 87.1 MCH 28.8 MCHC 33.0 RDW 14.7 H Plt Count 124 L MPV 9.0 Neut % (Auto) 69.1 Lymph % (Auto) 19.3 L [place] % (Auto) 10.3 H Eos % (Auto) 0.7 Baso % (Auto) 0.6 Neut # (Auto) 4.7 Lymph # (Auto) 1.3 [place] # (Auto) 0.7 Eos # (Auto) 0.0 Baso # (Auto) 0.0 Sodium Potassium Chloride Carbon Dioxide Anion Gap BUN Creatinine Est GFR ( Amer) Est GFR (Non-Af Amer) POC Glucose (mg/dL) 102 111 H Random Glucose Calcium Phosphorus Magnesium Total Bilirubin AST ALT Alkaline Phosphatase Total Protein Albumin Globulin Albumin/Globulin Ratio Free T4 TSH 3rd Generation 11/10/17 11/10/17 11/10/17 06:11 06:11 07:48 WBC RBC Hgb Hct MCV MCH MCHC RDW Plt Count MPV Neut % (Auto) Lymph % (Auto) [place] % (Auto) Eos % (Auto) Baso % (Auto) Neut # (Auto) Lymph # (Auto) [place] # (Auto) Eos # (Auto) Baso # (Auto) Sodium 141 Potassium 4.3 Chloride 105 Carbon Dioxide 25 Anion Gap 15 BUN 16 Creatinine 0.9 Est GFR ( Amer) > 60 Est GFR (Non-Af Amer) > 60 POC Glucose (mg/dL) 127 H Random Glucose 114 H Calcium 9.0 Phosphorus 3.4 Magnesium 1.6 Total Bilirubin 0.4 AST 15 L ALT 9 L Alkaline Phosphatase 61 Total Protein 6.7 Albumin 3.5 Globulin 3.3 Albumin/Globulin Ratio 1.1 Free T4 0.93 TSH 3rd Generation 0.43 L 11/10/17 11:43 WBC RBC Hgb Hct MCV MCH MCHC RDW Plt Count MPV Neut % (Auto) Lymph % (Auto) [place] % (Auto) Eos % (Auto) Baso % (Auto) Neut # (Auto) Lymph # (Auto) [place] # (Auto) Eos # (Auto) Baso # (Auto) Sodium Potassium Chloride Carbon Dioxide Anion Gap BUN Creatinine Est GFR ( Amer) Est GFR (Non-Af Amer) POC Glucose (mg/dL) 170 H Random Glucose Calcium Phosphorus Magnesium Total Bilirubin AST ALT Alkaline Phosphatase Total Protein Albumin Globulin Albumin/Globulin Ratio Free T4 TSH 3rd Generation Critical Care Progress Note - Nutrition Nutrition: Nutrition Category Date Time Status Heart Healthy Diet [DIET] Diets 11/10/17 Breakfast Active Attending/Attestation - Attestation I have personally seen and examined this patient.: Yes I have fully participated in the care of the patient.: Yes I have reviewed all pertinent clinical information: Yes Notes (Text): 11/09/17 Today: , November 09, 2017 The Patient was seen and examined at the bedside, Medical records reviewed, and management issues were discussed and formulated with the house staff. I have reviewed all the relevant clinical, laboratory, hemodynamic, radiographic data and medications Events reviewed Pain issues, skin care, head of the bed elevation, glycemic control were addressed. Agree with above resident's assessment and treatment plans of care as transcribed in Dr. Green note.
[2017-11-09] MEDS ORDERED: Bacitracin 50,000 UNIT in Sodium Chloride 0.9% Irrig 1,000 ML IR SCH (16:45)
[2017-11-09] MEDS ORDERED: Thrombin Topical 5,000 Int Units Spray Kit ONE (17:20)
[2017-11-09] MEDS ORDERED: ceFAZolin 1 gm in NS 1 GM/100 ML BAG IVPB ONE ×2 (18:33→19:25)
[2017-11-09] MEDS ORDERED: Papaverine Hydrochloride 30 mg/ml (2ml) ONE (18:38)
--- NOTE | 2017-11-09 19:19 | PCM.OP ---
Operative Report - Operative Report Date of Surgery/Procedure: 11/09/17 Time of Surgery/Procedure: 19:15 Surgeon: Hellen Anesthesia/Sedation: MAC Pre-Operative Diagnosis: Third degree AV block Post-Operative Diagnosis: Third degree AV block Indication for Surgery: Third degree AV block Operative Findings: Complete AV block Procedure/Operation Description: After informed consent the left pectoral region was draped and prepped. The left axillary vein was accessed after local anesthesia was administred. Two 6Fr sheaths were placed. A 3 cm incision was made and a pocket created. Two pacing leads were placed in the Right atrial appendage and the right ventricular apex. Pace and sense parameters were in the normal range. The leads were sutured to the pectoral fascia. Hemostasis and antibiotic flush were performed. The pacemaker generator was attached to the leads. The pocket was closed in layers Estimated Blood Loss: 10cc Complications: None Discharge & Condition: Stable
[2017-11-09] MEDS ORDERED: Propofol 10 mg/ml Inj (20 ML) ONE (19:28)
[2017-11-09] MEDS ORDERED: Lidocaine Hydrochloride 5 ML INJ ONE (19:29)
--- NOTE | 2017-11-09 20:32 | CP.PCM.PN ---
Subjective - Date & Time of Evaluation Date of Evaluation: 11/09/17 Time of Evaluation: 20:29 - Subjective Subjective: Mr. Lowe had an uncomplicated pacemaker placed The transvenous pacing lead and the sheath were removed Plan Ancef 1 gm x three days Left arm sling x 4 days Cory to be removed next week Wound care follow up [id number] @ [address] [place] [address]/Tel: [phone] Objective - Vital Signs/Intake and Output Vital Signs (last 24 hours): Temp Pulse Resp BP Pulse Ox 98.1 F 69 20 168/80 H 97 11/09/17 16:00 11/09/17 19:00 11/09/17 19:00 11/09/17 19:00 11/09/17 19:00 Intake and Output: 11/09/17 11/10/17 18:59 06:59 Intake Total 0 200 Output Total 900 Balance -900 200 - Medications Medications: Current Medications Aspirin (Ecotrin) 81 mg PO DAILY [facility] Enoxaparin Sodium (Lovenox) 90 mg SC Q12 [facility] Last Admin: 11/08/17 22:00 Dose: 90 mg Insulin Human Regular (Novolin R) 0 unit SC ACHS [facility] PRN Reason: Protocol Last Admin: 11/09/17 17:29 Dose: Not Given Lisinopril (Zestril) 2.5 mg PO DAILY [facility] Last Admin: 11/09/17 10:00 Dose: Not Given Rosuvastatin Calcium (Crestor) 10 mg PO HS [facility] - Labs Labs: 11/09/17 06:04 11/09/17 06:03 PT 12.8 SECONDS (9.7-12.2) H 11/08/17 08:29 INR 1.1 11/08/17 08:29 APTT 21 SECONDS (21-34) 11/08/17 08:29 Assessment and Plan - Assessment and Plan (Free Text) Assessment: Mr. Lowe had an uncomplicated pacemaker placed The transvenous pacing lead and the sheath were removed Plan Ancef 1 gm x three days Left arm sling x 4 days Eliza to be removed next week Wound care follow up [email or web address] @ [address] [place] [address]/Tel: [phone]
[2017-11-10 06:18] LABS: BASO % 0.6 % (0.0-2.0); EOS % 0.7 % (0.0-4.0); HEMOGLOBIN 10.7 g/dL (12.0-18.0); LYMPH # 1.3 K/uL (1.0-4.3); LYMPH % 19.3 % (20.0-40.0); MEAN CELL VOLUME 87.1 fL (80.0-94.0); MEAN CORPUSCULAR HEMOGLOBIN 28.8 pg (27.0-31.0); MONO # 0.7 K/uL (0.0-0.8); MONO % 10.3 % (0.0-10.0); NEUT # 4.7 K/uL (1.8-7.0); NEUT % 69.1 % (50.0-75.0); RBC 3.72 Mil/uL (4.40-5.90); RED CELL DISTRIBUTION WIDTH 14.7 % (11.5-14.5); WHITE BLOOD COUNT 6.8 K/uL (4.8-10.8)
[2017-11-10 06:42] LABS: ALB/GLOB RATIO 1.1 (1.0-2.1); ALBUMIN 3.5 g/dL (3.5-5.0); ALT/SGPT 9 U/L (21-72); AST/SGOT 15 U/L (17-59); BLOOD UREA NITROGEN 16 mg/dL (9-20); GFR AFRICAN-AMERICAN > 60; GFR NON-AFRICAN AMERICAN > 60
--- NOTE | 2017-11-10 07:50 | RAD ---
PROCEDURE: Intraoperative Fluoroscopy. HISTORY: PACEMAKER PLACEMENT FINDINGS: Fluoroscopic assistance was provided for pacemaker placement. Please refer to the operative report from JUAN Enrique, , MD JOY.
[2017-11-10] MEDS: (Novolin R) Insulin Human Regular 100 units/ml vial SC SCH ×4 (07:54→21:20)
--- NOTE | 2017-11-10 10:01 | CP.CCUPN ---
Addendum entered and electronically signed by Frederick Green DO 11/10/17 11:15: Disposition: Downgrade to telemetry Original Note: <Frederick Green - Last Filed: 11/10/17 10:54> CCU Subjective - Physician Review Subjective (Free Text): 11/09/17 12:13 Patient seen and examined at bedside. Patient has no complaints at this time. He continues to feel better after having the temporary pacemaker. Patient is NPO for cardiac cath. 11/10/17 10:54 Patient seen and examined. Patient feels overall much improved since having his rhythm paced. He has no complaints at this time. CCU Objective - Vital Signs / Intake & Output Vital Signs (Last 4 hours): Vital Signs Temp Pulse Resp BP Pulse Ox 11/10/17 08:57 96 H 15 133/76 11/10/17 08:00 98.5 F 74 18 97 11/10/17 07:57 75 19 143/78 97 11/10/17 07:29 77 17 172/96 H 98 11/10/17 06:29 82 22 186/92 H 96 Intake and Output (Last 8hrs): Intake & Output 11/09/17 11/10/17 11/10/17 22:59 06:59 14:59 Intake Total 350 0 300 Output Total 575 1050 150 Balance -225 -1050 150 Weight 196 lb Intake: IV 200 Intake, IV Amount 0 0 0 Right Hand 0 0 0 Oral 150 0 300 Output: Urine 275 1050 150 Urine, Voided 275 1050 150 Stool 0 0 Other 300 Other: # Voids Urine, Voided 1 - Physical Exam Head: Positive for: Atraumatic, Normocephalic Pupils: Positive for: PERRL Extroacular Muscles: Positive for: EOMI Conjunctiva: Positive for: Normal Mouth: Positive for: Moist Mucous Membranes Respiratory/Chest: Positive for: Clear to Auscultation. Negative for: Wheezes, Rales, Rhonchi Cardiovascular: Positive for: Regular Rate and Rhythm, Normal S1, S2 Abdomen: Positive for: Normal Bowel Sounds. Negative for: Tenderness Upper Extremity: Positive for: Normal Inspection Lower Extremity: Positive for: Normal Inspection Neurological: Positive for: GCS=15 Skin: Positive for: Warm, Dry Psychiatric: Positive for: Alert, Oriented x 3 - Medications Active Medications: Active Medications Generic Name Dose Route Start Last Admin Trade Name Corkyq PRN Reason Stop Dose Admin Aspirin 81 mg 11/10/17 10:00 11/10/17 09:10 Ecotrin PO 81 mg DAILY ANALI Administration Enoxaparin Sodium 90 mg 11/08/17 22:00 11/08/17 22:00 Lovenox SC 90 mg Q12 ANALI Administration Cefazolin Sodium 1,000 mg/ 50 mls @ 100 mls/hr 11/10/17 10:00 Sodium Chloride IVPB 11/11/17 02:29 Q8H [facility] Protocol Insulin Human Regular 0 unit 11/08/17 11:30 11/10/17 07:54 Novolin R SC Not Given ACHS [facility] Protocol Lisinopril 2.5 mg 11/08/17 18:30 11/10/17 09:10 Zestril PO 2.5 mg DAILY ANALI Administration Rosuvastatin Calcium 10 mg 11/09/17 22:00 11/09/17 22:02 Crestor PO 10 mg HS ANALI Administration - Patient Studies Lab Studies: Microbiology Studies 11/08/17 12:20 MRSA Culture (Admit) - Final Nose MRSA NOT DETECTED Lab Studies 11/10/17 11/10/17 11/10/17 Range/Units 07:48 06:11 06:11 WBC (4.8-10.8) K/uL RBC (4.40-5.90) Mil/uL Hgb (12.0-18.0) g/dL Hct (35.0-51.0) % MCV (80.0-94.0) fL MCH (27.0-31.0) pg MCHC (33.0-37.0) g/dL RDW (11.5-14.5) % Plt Count (130-400) K/uL MPV (7.2-11.7) fL Neut % (Auto) (50.0-75.0) % Lymph % (Auto) (20.0-40.0) % [place] % (Auto) (0.0-10.0) % Eos % (Auto) (0.0-4.0) % Baso % (Auto) (0.0-2.0) % Neut # (Auto) (1.8-7.0) K/uL Lymph # (Auto) (1.0-4.3) K/uL [place] # (Auto) (0.0-0.8) K/uL Eos # (Auto) (0.0-0.7) K/uL Baso # (Auto) (0.0-0.2) K/uL Sodium 141 (132-148) mmol/L Potassium 4.3 (3.6-5.2) mmol/L Chloride 105 (98-107) mmol/L Carbon Dioxide 25 (22-30) mmol/L Anion Gap 15 (10-20) BUN 16 (9-20) mg/dL Creatinine 0.9 (0.8-1.5) mg/dL Est GFR ( Amer) > 60 Est GFR (Non-Af Amer) > 60 POC Glucose (mg/dL) 127 H (65-110) mg/dL Random Glucose 114 H (75-110) mg/dL Calcium 9.0 (8.6-10.4) mg/dl Phosphorus 3.4 (2.5-4.5) mg/dL Magnesium 1.6 (1.6-2.3) mg/dL Total Bilirubin 0.4 (0.2-1.3) mg/dL AST 15 L (17-59) U/L ALT 9 L (21-72) U/L Alkaline Phosphatase 61 (38-126) U/L Total Protein 6.7 (6.3-8.3) g/dL Albumin 3.5 (3.5-5.0) g/dL Globulin 3.3 (2.2-3.9) gm/dL Albumin/Globulin Ratio 1.1 (1.0-2.1) Free T4 0.93 (0.78-2.19) ng/dL TSH 3rd Generation 0.43 L (0.46-4.68) mIU/L 11/10/17 11/09/17 11/09/17 Range/Units 06:11 21:12 16:11 WBC 6.8 (4.8-10.8) K/uL RBC 3.72 L (4.40-5.90) Mil/uL Hgb 10.7 L (12.0-18.0) g/dL Hct 32.4 L (35.0-51.0) % MCV 87.1 (80.0-94.0) fL MCH 28.8 (27.0-31.0) pg MCHC 33.0 (33.0-37.0) g/dL RDW 14.7 H (11.5-14.5) % Plt Count 124 L (130-400) K/uL MPV 9.0 (7.2-11.7) fL Neut % (Auto) 69.1 (50.0-75.0) % Lymph % (Auto) 19.3 L (20.0-40.0) % [place] % (Auto) 10.3 H (0.0-10.0) % Eos % (Auto) 0.7 (0.0-4.0) % Baso % (Auto) 0.6 (0.0-2.0) % Neut # (Auto) 4.7 (1.8-7.0) K/uL Lymph # (Auto) 1.3 (1.0-4.3) K/uL [place] # (Auto) 0.7 (0.0-0.8) K/uL Eos # (Auto) 0.0 (0.0-0.7) K/uL Baso # (Auto) 0.0 (0.0-0.2) K/uL Sodium (132-148) mmol/L Potassium (3.6-5.2) mmol/L Chloride (98-107) mmol/L Carbon Dioxide (22-30) mmol/L Anion Gap (10-20) BUN (9-20) mg/dL Creatinine (0.8-1.5) mg/dL Est GFR ( Amer) Est GFR (Non-Af Amer) POC Glucose (mg/dL) 111 H 102 (65-110) mg/dL Random Glucose (75-110) mg/dL Calcium (8.6-10.4) mg/dl Phosphorus (2.5-4.5) mg/dL Magnesium (1.6-2.3) mg/dL Total Bilirubin (0.2-1.3) mg/dL AST (17-59) U/L ALT (21-72) U/L Alkaline Phosphatase (38-126) U/L Total Protein (6.3-8.3) g/dL Albumin (3.5-5.0) g/dL Globulin (2.2-3.9) gm/dL Albumin/Globulin Ratio (1.0-2.1) Free T4 (0.78-2.19) ng/dL TSH 3rd Generation (0.46-4.68) mIU/L 11/09/17 Range/Units 11:09 WBC (4.8-10.8) K/uL RBC (4.40-5.90) Mil/uL Hgb (12.0-18.0) g/dL Hct (35.0-51.0) % MCV (80.0-94.0) fL MCH (27.0-31.0) pg MCHC (33.0-37.0) g/dL RDW (11.5-14.5) % Plt Count (130-400) K/uL MPV (7.2-11.7) fL Neut % (Auto) (50.0-75.0) % Lymph % (Auto) (20.0-40.0) % [place] % (Auto) (0.0-10.0) % Eos % (Auto) (0.0-4.0) % Baso % (Auto) (0.0-2.0) % Neut # (Auto) (1.8-7.0) K/uL Lymph # (Auto) (1.0-4.3) K/uL [place] # (Auto) (0.0-0.8) K/uL Eos # (Auto) (0.0-0.7) K/uL Baso # (Auto) (0.0-0.2) K/uL Sodium (132-148) mmol/L Potassium (3.6-5.2) mmol/L Chloride (98-107) mmol/L Carbon Dioxide (22-30) mmol/L Anion Gap (10-20) BUN (9-20) mg/dL Creatinine (0.8-1.5) mg/dL Est GFR ( Amer) Est GFR (Non-Af Amer) POC Glucose (mg/dL) 120 H (65-110) mg/dL Random Glucose (75-110) mg/dL Calcium (8.6-10.4) mg/dl Phosphorus (2.5-4.5) mg/dL Magnesium (1.6-2.3) mg/dL Total Bilirubin (0.2-1.3) mg/dL AST (17-59) U/L ALT (21-72) U/L Alkaline Phosphatase (38-126) U/L Total Protein (6.3-8.3) g/dL Albumin (3.5-5.0) g/dL Globulin (2.2-3.9) gm/dL Albumin/Globulin Ratio (1.0-2.1) Free T4 (0.78-2.19) ng/dL TSH 3rd Generation (0.46-4.68) mIU/L Laboratory Results - last 24 hr 11/09/17 11/09/17 11/09/17 11:09 16:11 21:12 WBC RBC Hgb Hct MCV MCH MCHC RDW Plt Count MPV Neut % (Auto) Lymph % (Auto) [place] % (Auto) Eos % (Auto) Baso % (Auto) Neut # (Auto) Lymph # (Auto) [place] # (Auto) Eos # (Auto) Baso # (Auto) Sodium Potassium Chloride Carbon Dioxide Anion Gap BUN Creatinine Est GFR ( Amer) Est GFR (Non-Af Amer) POC Glucose (mg/dL) 120 H 102 111 H Random Glucose Calcium Phosphorus Magnesium Total Bilirubin AST ALT Alkaline Phosphatase Total Protein Albumin Globulin Albumin/Globulin Ratio Free T4 TSH 3rd Generation 11/10/17 11/10/17 11/10/17 06:11 06:11 06:11 WBC 6.8 RBC 3.72 L Hgb 10.7 L Hct 32.4 L MCV 87.1 MCH 28.8 MCHC 33.0 RDW 14.7 H Plt Count 124 L MPV 9.0 Neut % (Auto) 69.1 Lymph % (Auto) 19.3 L [place] % (Auto) 10.3 H Eos % (Auto) 0.7 Baso % (Auto) 0.6 Neut # (Auto) 4.7 Lymph # (Auto) 1.3 [place] # (Auto) 0.7 Eos # (Auto) 0.0 Baso # (Auto) 0.0 Sodium 141 Potassium 4.3 Chloride 105 Carbon Dioxide 25 Anion Gap 15 BUN 16 Creatinine 0.9 Est GFR ( Amer) > 60 Est GFR (Non-Af Amer) > 60 POC Glucose (mg/dL) Random Glucose 114 H Calcium 9.0 Phosphorus 3.4 Magnesium 1.6 Total Bilirubin 0.4 AST 15 L ALT 9 L Alkaline Phosphatase 61 Total Protein 6.7 Albumin 3.5 Globulin 3.3 Albumin/Globulin Ratio 1.1 Free T4 0.93 TSH 3rd Generation 0.43 L 11/10/17 07:48 WBC RBC Hgb Hct MCV MCH MCHC RDW Plt Count MPV Neut % (Auto) Lymph % (Auto) [place] % (Auto) Eos % (Auto) Baso % (Auto) Neut # (Auto) Lymph # (Auto) [place] # (Auto) Eos # (Auto) Baso # (Auto) Sodium Potassium Chloride Carbon Dioxide Anion Gap BUN Creatinine Est GFR ( Amer) Est GFR (Non-Af Amer) POC Glucose (mg/dL) 127 H Random Glucose Calcium Phosphorus Magnesium Total Bilirubin AST ALT Alkaline Phosphatase Total Protein Albumin Globulin Albumin/Globulin Ratio Free T4 TSH 3rd Generation Fingerstick Blood Sugar Results: 127 Critical Care Progress Note - Nutrition Nutrition: Nutrition Category Date Time Status Heart Healthy Diet [DIET] Diets 11/10/17 Breakfast Active Assessment/Plan - Assessment and Plan (Free Text) Assessment: This is a 76 year old male with PMHx HTN, DM, HLD who presented complaining of dizziness and vague chest discomfort. 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 Temporary transvenous pacer placed on 11/08/17. Patient underwent cardiac cath with Dr. Haynes who discovered chronic coronary artery disease. He does not need emergent stenting but would benefit from permanent pacemaker. Neuro Awake, verbal Cardio Normotensive Holding home Norvasc for now Lisinopril 2.5 mg PO daily Echo shows EF 40% and hypokinesis Temporary pacemaker inserted on 11/08/17 Cardiac cath on 11/09/17 shows chronic CAD but no need for emergent stenting. He may follow up with Dr. Haynes for stenting in the future. Permanent pacemaker placed on 11/09/[address] Macedo, patient is to be off of anticoagulation for 3 days post procedure Pulm Saturating well on room air GI Pepcid 20 mg PO BID Carbohydrate consistent diet Endocrine Regular ISS Accuchecks Infectious Disease Per Dr. Macedo, Ancef x 3 doses and then can be discharged on Keflex Heme/onc Monitor H/H Patient with history of DVT Ultrasound performed and positive on the left side for DVT. Per Dr. Macedo, hold anticoagulation for 3 days post procedure Prophylaxis Holding anticoagulation as per cardiology recommendations Pepcid 20 mg PO BID Discussed with Dr. Perry <Beto Perry M - Last Filed: 11/10/17 13:35> CCU Objective - Vital Signs / Intake & Output Vital Signs (Last 4 hours): Vital Signs Pulse Resp BP Pulse Ox 11/10/17 12:56 82 11 L 120/87 96 11/10/17 11:56 81 21 136/87 99 11/10/17 11:21 76 15 128/77 98 11/10/17 09:57 85 20 135/81 83 L Intake and Output (Last 8hrs): Intake & Output 11/09/17 11/10/17 11/10/17 22:59 06:59 14:59 Intake Total 350 0 700 Output Total 575 1050 400 Balance -225 -1050 300 Weight 196 lb Intake: IV 200 Intake, IV Amount 0 0 100 Right Hand 0 0 100 Oral 150 0 600 Output: Urine 275 1050 400 Urine, Voided 275 1050 400 Stool 0 0 Other 300 Other: # Voids Urine, Voided 1 - Medications Active Medications: Active Medications Generic Name Dose Route Start Last Admin Trade Name Corkyq PRN Reason Stop Dose Admin Aspirin 81 mg 11/10/17 10:00 11/10/17 09:10 Ecotrin PO 81 mg DAILY ANALI Administration Enoxaparin Sodium 90 mg 11/08/17 22:00 11/08/17 22:00 Lovenox SC 90 mg Q12 ANALI Administration Cefazolin Sodium 1 gm/ Sodium 100 mls @ 100 mls/hr 11/10/17 10:00 11/10/17 10 :55 Chloride IVPB 11/11/17 02:59 100 mls/hr Q8H ANALI Administration Protocol Insulin Human Regular 0 unit 11/08/17 11:30 11/10/17 12:01 Novolin R SC 2 unit ACHS ANALI Administration Protocol Lisinopril 2.5 mg 11/08/17 18:30 11/10/17 09:10 Zestril PO 2.5 mg DAILY ANALI Administration Rosuvastatin Calcium 10 mg 11/09/17 22:00 11/09/17 22:02 Crestor PO 10 mg HS ANALI Administration - Patient Studies Lab Studies: Microbiology Studies 11/08/17 12:20 MRSA Culture (Admit) - Final Nose MRSA NOT DETECTED Lab Studies 11/10/17 11/10/17 11/10/17 Range/Units 11:43 07:48 06:11 WBC (4.8-10.8) K/uL RBC (4.40-5.90) Mil/uL Hgb (12.0-18.0) g/dL Hct (35.0-51.0) % MCV (80.0-94.0) fL MCH (27.0-31.0) pg MCHC (33.0-37.0) g/dL RDW (11.5-14.5) % Plt Count (130-400) K/uL MPV (7.2-11.7) fL Neut % (Auto) (50.0-75.0) % Lymph % (Auto) (20.0-40.0) % [place] % (Auto) (0.0-10.0) % Eos % (Auto) (0.0-4.0) % Baso % (Auto) (0.0-2.0) % Neut # (Auto) (1.8-7.0) K/uL Lymph # (Auto) (1.0-4.3) K/uL [place] # (Auto) (0.0-0.8) K/uL Eos # (Auto) (0.0-0.7) K/uL Baso # (Auto) (0.0-0.2) K/uL Sodium (132-148) mmol/L Potassium (3.6-5.2) mmol/L Chloride (98-107) mmol/L Carbon Dioxide (22-30) mmol/L Anion Gap (10-20) BUN (9-20) mg/dL Creatinine (0.8-1.5) mg/dL Est GFR ( Amer) Est GFR (Non-Af Amer) POC Glucose (mg/dL) 170 H 127 H (65-110) mg/dL Random Glucose (75-110) mg/dL Calcium (8.6-10.4) mg/dl Phosphorus (2.5-4.5) mg/dL Magnesium (1.6-2.3) mg/dL Total Bilirubin (0.2-1.3) mg/dL AST (17-59) U/L ALT (21-72) U/L Alkaline Phosphatase (38-126) U/L Total Protein (6.3-8.3) g/dL Albumin (3.5-5.0) g/dL Globulin (2.2-3.9) gm/dL Albumin/Globulin Ratio (1.0-2.1) Free T4 0.93 (0.78-2.19) ng/dL TSH 3rd Generation (0.46-4.68) mIU/L 11/10/17 11/10/17 11/09/17 Range/Units 06:11 06:11 21:12 WBC 6.8 (4.8-10.8) K/uL RBC 3.72 L (4.40-5.90) Mil/uL Hgb 10.7 L (12.0-18.0) g/dL Hct 32.4 L (35.0-51.0) % MCV 87.1 (80.0-94.0) fL MCH 28.8 (27.0-31.0) pg MCHC 33.0 (33.0-37.0) g/dL RDW 14.7 H (11.5-14.5) % Plt Count 124 L (130-400) K/uL MPV 9.0 (7.2-11.7) fL Neut % (Auto) 69.1 (50.0-75.0) % Lymph % (Auto) 19.3 L (20.0-40.0) % [place] % (Auto) 10.3 H (0.0-10.0) % Eos % (Auto) 0.7 (0.0-4.0) % Baso % (Auto) 0.6 (0.0-2.0) % Neut # (Auto) 4.7 (1.8-7.0) K/uL Lymph # (Auto) 1.3 (1.0-4.3) K/uL [place] # (Auto) 0.7 (0.0-0.8) K/uL Eos # (Auto) 0.0 (0.0-0.7) K/uL Baso # (Auto) 0.0 (0.0-0.2) K/uL Sodium 141 (132-148) mmol/L Potassium 4.3 (3.6-5.2) mmol/L Chloride 105 (98-107) mmol/L Carbon Dioxide 25 (22-30) mmol/L Anion Gap 15 (10-20) BUN 16 (9-20) mg/dL Creatinine 0.9 (0.8-1.5) mg/dL Est GFR ( Amer) > 60 Est GFR (Non-Af Amer) > 60 POC Glucose (mg/dL) 111 H (65-110) mg/dL Random Glucose 114 H (75-110) mg/dL Calcium 9.0 (8.6-10.4) mg/dl Phosphorus 3.4 (2.5-4.5) mg/dL Magnesium 1.6 (1.6-2.3) mg/dL Total Bilirubin 0.4 (0.2-1.3) mg/dL AST 15 L (17-59) U/L ALT 9 L (21-72) U/L Alkaline Phosphatase 61 (38-126) U/L Total Protein 6.7 (6.3-8.3) g/dL Albumin 3.5 (3.5-5.0) g/dL Globulin 3.3 (2.2-3.9) gm/dL Albumin/Globulin Ratio 1.1 (1.0-2.1) Free T4 (0.78-2.19) ng/dL TSH 3rd Generation 0.43 L (0.46-4.68) mIU/L 11/09/17 Range/Units 16:11 WBC (4.8-10.8) K/uL RBC (4.40-5.90) Mil/uL Hgb (12.0-18.0) g/dL Hct (35.0-51.0) % MCV (80.0-94.0) fL MCH (27.0-31.0) pg MCHC (33.0-37.0) g/dL RDW (11.5-14.5) % Plt Count (130-400) K/uL MPV (7.2-11.7) fL Neut % (Auto) (50.0-75.0) % Lymph % (Auto) (20.0-40.0) % [place] % (Auto) (0.0-10.0) % Eos % (Auto) (0.0-4.0) % Baso % (Auto) (0.0-2.0) % Neut # (Auto) (1.8-7.0) K/uL Lymph # (Auto) (1.0-4.3) K/uL [place] # (Auto) (0.0-0.8) K/uL Eos # (Auto) (0.0-0.7) K/uL Baso # (Auto) (0.0-0.2) K/uL Sodium (132-148) mmol/L Potassium (3.6-5.2) mmol/L Chloride (98-107) mmol/L Carbon Dioxide (22-30) mmol/L Anion Gap (10-20) BUN (9-20) mg/dL Creatinine (0.8-1.5) mg/dL Est GFR ( Amer) Est GFR (Non-Af Amer) POC Glucose (mg/dL) 102 (65-110) mg/dL Random Glucose (75-110) mg/dL Calcium (8.6-10.4) mg/dl Phosphorus (2.5-4.5) mg/dL Magnesium (1.6-2.3) mg/dL Total Bilirubin (0.2-1.3) mg/dL AST (17-59) U/L ALT (21-72) U/L Alkaline Phosphatase (38-126) U/L Total Protein (6.3-8.3) g/dL Albumin (3.5-5.0) g/dL Globulin (2.2-3.9) gm/dL Albumin/Globulin Ratio (1.0-2.1) Free T4 (0.78-2.19) ng/dL TSH 3rd Generation (0.46-4.68) mIU/L Laboratory Results - last 24 hr 11/09/17 11/09/17 11/10/17 16:11 21:12 06:11 WBC 6.8 RBC 3.72 L Hgb 10.7 L Hct 32.4 L MCV 87.1 MCH 28.8 MCHC 33.0 RDW 14.7 H Plt Count 124 L MPV 9.0 Neut % (Auto) 69.1 Lymph % (Auto) 19.3 L [place] % (Auto) 10.3 H Eos % (Auto) 0.7 Baso % (Auto) 0.6 Neut # (Auto) 4.7 Lymph # (Auto) 1.3 [place] # (Auto) 0.7 Eos # (Auto) 0.0 Baso # (Auto) 0.0 Sodium Potassium Chloride Carbon Dioxide Anion Gap BUN Creatinine Est GFR ( Amer) Est GFR (Non-Af Amer) POC Glucose (mg/dL) 102 111 H Random Glucose Calcium Phosphorus Magnesium Total Bilirubin AST ALT Alkaline Phosphatase Total Protein Albumin Globulin Albumin/Globulin Ratio Free T4 TSH 3rd Generation 11/10/17 11/10/17 11/10/17 06:11 06:11 07:48 WBC RBC Hgb Hct MCV MCH MCHC RDW Plt Count MPV Neut % (Auto) Lymph % (Auto) [place] % (Auto) Eos % (Auto) Baso % (Auto) Neut # (Auto) Lymph # (Auto) [place] # (Auto) Eos # (Auto) Baso # (Auto) Sodium 141 Potassium 4.3 Chloride 105 Carbon Dioxide 25 Anion Gap 15 BUN 16 Creatinine 0.9 Est GFR ( Amer) > 60 Est GFR (Non-Af Amer) > 60 POC Glucose (mg/dL) 127 H Random Glucose 114 H Calcium 9.0 Phosphorus 3.4 Magnesium 1.6 Total Bilirubin 0.4 AST 15 L ALT 9 L Alkaline Phosphatase 61 Total Protein 6.7 Albumin 3.5 Globulin 3.3 Albumin/Globulin Ratio 1.1 Free T4 0.93 TSH 3rd Generation 0.43 L 11/10/17 11:43 WBC RBC Hgb Hct MCV MCH MCHC RDW Plt Count MPV Neut % (Auto) Lymph % (Auto) [place] % (Auto) Eos % (Auto) Baso % (Auto) Neut # (Auto) Lymph # (Auto) [place] # (Auto) Eos # (Auto) Baso # (Auto) Sodium Potassium Chloride Carbon Dioxide Anion Gap BUN Creatinine Est GFR ( Amer) Est GFR (Non-Af Amer) POC Glucose (mg/dL) 170 H Random Glucose Calcium Phosphorus Magnesium Total Bilirubin AST ALT Alkaline Phosphatase Total Protein Albumin Globulin Albumin/Globulin Ratio Free T4 TSH 3rd Generation Critical Care Progress Note - Nutrition Nutrition: Nutrition Category Date Time Status Heart Healthy Diet [DIET] Diets 11/10/17 Breakfast Active Attending/Attestation - Attestation I have personally seen and examined this patient.: Yes I have fully participated in the care of the patient.: Yes I have reviewed all pertinent clinical information: Yes Notes (Text): 11/10/17 13:35 Today: Friday, November 10, 2017 The Patient was seen and examined at the bedside, Medical records reviewed, and management issues were discussed and formulated with the house staff. I have reviewed all the relevant clinical, laboratory, hemodynamic, radiographic data and medications Events reviewed Pain issues, skin care, head of the bed elevation, glycemic control were addressed. Agree with above resident's assessment and treatment plans of care as transcribed in Dr. Elin Green note.
[2017-11-10] MEDS: ceFAZolin 1 GM in Sodium Chloride 0.9% 100 ML IVPB SCH ×2 (10:55→17:25)
--- NOTE | 2017-11-10 11:53 | CP.PCM.PN ---
<Skyler Kimble - Last Filed: 11/10/17 18:51> Subjective - Date & Time of Evaluation Date of Evaluation: 11/10/17 Time of Evaluation: 11:44 - Subjective Subjective: PGY2 progress note for Dr. Haynes's service: Pt seen and examined at bedside with attending, Dr. Haynes. He reports feeling much better since pacemaker was placed. He denies dizziness, chest pain or SOB at rest or with exertion. He complains of mild soreness around site of PPM placement. Patient aware of DVT in left leg, and understands he will not begin anticoagulation for 3 days post procedure and will need to be monitored at the hospital. Objective - Vital Signs/Intake and Output Vital Signs (last 24 hours): Temp Pulse Resp BP Pulse Ox 98.5 F 76 15 128/77 98 11/10/17 08:00 11/10/17 11:21 11/10/17 11:21 11/10/17 11:21 11/10/17 11:21 Intake and Output: 11/10/17 11/10/17 06:59 18:59 Intake Total 350 520 Output Total 1325 275 Balance -975 245 - Medications Medications: Current Medications Aspirin (Ecotrin) 81 mg PO DAILY [facility] Last Admin: 11/10/17 09:10 Dose: 81 mg Enoxaparin Sodium (Lovenox) 90 mg SC Q12 [facility] Last Admin: 11/08/17 22:00 Dose: 90 mg Cefazolin Sodium 1 gm/ Sodium (Chloride) 100 mls @ 100 mls/hr IVPB Q8H ANA[facility] PRN Reason: Protocol Stop: 11/11/17 02:59 Last Admin: 11/10/17 10:55 Dose: 100 mls/hr Insulin Human Regular (Novolin R) 0 unit SC ACHS ANALI PRN Reason: Protocol Last Admin: 11/10/17 07:54 Dose: Not Given Lisinopril (Zestril) 2.5 mg PO DAILY [facility] Last Admin: 11/10/17 09:10 Dose: 2.5 mg Rosuvastatin Calcium (Crestor) 10 mg PO HS [facility] Last Admin: 11/09/17 22:02 Dose: 10 mg - Labs Labs: 11/10/17 06:11 11/10/17 06:11 PT 12.8 SECONDS (9.7-12.2) H 11/08/17 08:29 INR 1.1 11/08/17 08:29 APTT 21 SECONDS (21-34) 11/08/17 08:29 - Constitutional Appears: Non-toxic, No Acute Distress - Head Exam Head Exam: ATRAUMATIC, NORMAL INSPECTION - Eye Exam Eye Exam: EOMI. absent: Scleral icterus Pupil Exam: PERRL - ENT Exam ENT Exam: Mucous Membranes Moist - Respiratory Exam Respiratory Exam: Clear to Ausculation Bilateral, NORMAL BREATHING PATTERN - Cardiovascular Exam Cardiovascular Exam: REGULAR RHYTHM, +S1, +S2 - GI/Abdominal Exam GI & Abdominal Exam: Soft, Normal Bowel Sounds. absent: Tenderness - Extremities Exam Extremities Exam: Normal Inspection. absent: Pedal Edema, Tenderness Additional comments: Right groin dressing c/d/i - Back Exam Back Exam: absent: CVA tenderness (L), CVA tenderness (R) - Neurological Exam Neurological Exam: Alert, Awake, Oriented x3 - Psychiatric Exam Psychiatric exam: Normal Affect, Normal Mood - Skin Skin Exam: Normal Color, Warm Assessment and Plan - Assessment and Plan (Free Text) Plan: Third degree AV block Admitted to ICU, downgraded to tele (11/10) Dr Haynes Genetics Teacher/EP Dr. Macedo consulted -Permanent Pacemaker inserted 11/09/17 -Ancef 1 gm x three days (Day 2) -Left arm sling x 4 days -[place] to be removed next week; Wound care f/u [id number] @ [address] [place] [address]/Tel: [phone] Left Lower Extremity DVT US Duplex LLE: positive for DVT No anticoagulation for 3 days after procedure, thus may begin on 11/13/[address] Macedo CAD Cardiac cath on 11/09/17 shows chronic CAD but no need for emergent stenting. He may follow up with Dr. Haynes for stenting in the future. Echo shows EF 40% and hypokinesis ASA 81mg PO Daily HTN Well controlled; med team holding home Norvasc Lisinopril 2.5mg PO daily HLD Crestor 10mg PO daily Hypomagnesemia Mg 1.6 on AM labs; repleted Skyler Kimble PGY-2 D/w Dr. Haynes <Catarino Haynes - Last Filed: 11/11/17 07:24> Objective - Vital Signs/Intake and Output Vital Signs (last 24 hours): Temp Pulse Resp BP Pulse Ox 98.7 F 84 20 144/71 98 11/11/17 04:15 11/11/17 04:15 11/11/17 04:15 11/11/17 04:15 11/11/17 04:15 Intake and Output: 11/11/17 11/11/17 06:59 18:59 Output Total 0 Balance 0 - Medications Medications: Current Medications Acetaminophen (Tylenol 325mg Tab) 650 mg PO Q6 PRN PRN Reason: Pain, moderate (4-7) Last Admin: 11/11/17 04:25 Dose: 650 mg Aspirin (Ecotrin) 81 mg PO DAILY [facility] Last Admin: 11/10/17 09:10 Dose: 81 mg Enoxaparin Sodium (Lovenox) 90 mg SC Q12 [facility] Last Admin: 11/08/17 22:00 Dose: 90 mg Insulin Human Regular (Novolin R) 0 unit SC ACHS [facility] PRN Reason: Protocol Last Admin: 11/10/17 21:20 Dose: Not Given Lisinopril (Zestril) 2.5 mg PO DAILY [facility] Last Admin: 11/10/17 09:10 Dose: 2.5 mg Rosuvastatin Calcium (Crestor) 10 mg PO HS [facility] Last Admin: 11/10/17 21:19 Dose: 10 mg - Labs Labs: 11/10/17 06:11 11/10/17 06:11 PT 12.8 SECONDS (9.7-12.2) H 11/08/17 08:29 INR 1.1 11/08/17 08:29 APTT 21 SECONDS (21-34) 11/08/17 08:29 Assessment and Plan - Assessment and Plan (Free Text) Plan: Patient seen and evaluated Plan of care d/w the medical office technology instructor and as documented
[2017-11-10] MEDS ORDERED: Magnesium Sulfate 1 gm in D5W 1 GM/100 ML BAG IVPB ONE (12:08)
--- NOTE | 2017-11-10 12:52 | VASCLAB ---
PROCEDURE: Lower Extremity Venous Duplex Exam. HISTORY: History of LLE DVT PRIORS: None. TECHNIQUE: Bilateral common femoral, femoral, popliteal and posterior tibial, peroneal and great saphenous veins were evaluated. Flow was assessed with color Doppler, compressibility, assessment of phasic flow and augmentation response. Report prepared by Dilshad Mullins, [facility], RVT FINDINGS: RIGHT: 1. Common Femoral Vein: 1.1. Compressibility - Fully compressible: Thrombus - None : Flow - Phasic: Augmentation -Normal: Reflux - None. 2. Femoral Vein: 2.1. Compressibility - Fully compressible: Thrombus - None : Flow - Phasic: Augmentation -Normal: Reflux - None. 3. Popliteal Vein: 3.1. Compressibility - Fully compressible: Thrombus - None : Flow - Phasic: Augmentation -Normal: Reflux - 2.7 seconds. 4. Posterior Tibial Vein: 4.1. Compressibility - Fully compressible: Thrombus - None: Flow - Phasic: Augmentation -Normal: Reflux - None. 5. Peroneal Vein: 5.1. Compressibility - Fully compressible: Thrombus - None: Flow - Phasic: Augmentation -Normal: Reflux - None. 6. Great Saphenous Vein: 6.1. Compressibility - Fully compressible: Thrombus - None: Flow - Phasic: Augmentation - Normal: Reflux - None. LEFT: 1. Common Femoral Vein: 1.1. Compressibility - Fully compressible: Thrombus - None: Flow - Phasic: Augmentation -Normal: Reflux - None. 2. Femoral Vein: 2.1. Compressibility - Fully compressible: Thrombus - None: Flow - Phasic: Augmentation -Normal: Reflux - None. 3. Popliteal Vein: 3.1. Compressibility - Partial: Thrombus - Chronic : Flow - Reduced : Augmentation -Reduced: Reflux - None. 4. Posterior Tibial Vein: 4.1. Compressibility - Fully compressible: Thrombus - None: Flow - Phasic: Augmentation -Normal: Reflux - None. 5. Peroneal Vein: 5.1. Compressibility - Fully compressible: Thrombus - None: Flow - Phasic: Augmentation -Normal: Reflux - None. 6. Great Saphenous Vein: 6.1. Compressibility - Fully compressible: Thrombus - None: Flow - Phasic: Augmentation - Normal: Reflux - None. OTHER FINDINGS: Right: None significant. Left: None significant. IMPRESSION: Right: No evidence of deep or superficial vein thrombosis of the right lower extremity. Severe reflux of the right popliteal vein. 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
[2017-11-10 22:10] VITALS: RESP 20
[2017-11-11] MEDS: ceFAZolin 1 GM in Sodium Chloride 0.9% 100 ML IVPB SCH (02:44)
[2017-11-11] MEDS: (Novolin R) Insulin Human Regular 100 units/ml vial SC SCH ×4 (08:00→21:27)
--- NOTE | 2017-11-12 06:32 | CP.PCM.PN ---
Subjective - Date & Time of Evaluation Date of Evaluation: 11/11/17 Time of Evaluation: 20:05 - Subjective Subjective: Patient seen and evaluated Comfortable Left leg DVT s/p PPM for complete heart block CAD Will start Eliquis (2.5 mg po bid) Monady for DVT Continue ASA 81 daily for CAD Objective - Vital Signs/Intake and Output Vital Signs (last 24 hours): Temp Pulse Resp BP Pulse Ox 99 F 72 20 131/69 98 11/12/17 04:10 11/12/17 04:10 11/12/17 04:10 11/12/17 04:10 11/12/17 04:10 Intake and Output: 11/11/17 11/12/17 18:59 06:59 Intake Total 780 150 Output Total 450 Balance 780 -300 - Medications Medications: Current Medications Acetaminophen (Tylenol 325mg Tab) 650 mg PO Q6 PRN PRN Reason: Pain, moderate (4-7) Last Admin: 11/12/17 01:34 Dose: 650 mg Aspirin (Ecotrin) 81 mg PO DAILY [facility] Last Admin: 11/11/17 09:18 Dose: 81 mg Enoxaparin Sodium (Lovenox) 90 mg SC Q12 [facility] Last Admin: 11/08/17 22:00 Dose: 90 mg Insulin Human Regular (Novolin R) 0 unit SC ACHS [facility] PRN Reason: Protocol Last Admin: 11/11/17 21:27 Dose: Not Given Lisinopril (Zestril) 2.5 mg PO DAILY [facility] Last Admin: 11/11/17 09:18 Dose: 2.5 mg Rosuvastatin Calcium (Crestor) 10 mg PO HS [facility] Last Admin: 11/11/17 21:52 Dose: 10 mg - Labs Labs: 11/10/17 06:11 11/10/17 06:11 PT 12.8 SECONDS (9.7-12.2) H 11/08/17 08:29 INR 1.1 11/08/17 08:29 APTT 21 SECONDS (21-34) 11/08/17 08:29
[2017-11-12] MEDS: (Novolin R) Insulin Human Regular 100 units/ml vial SC SCH ×4 (07:24→21:04)
--- NOTE | 2017-11-12 21:34 | CARD ---
APPROVED REPORT EKG Measurement Heart [id number] <Conclusion> Idioventricular rhythm with occasional premature ventricular complexes Right bundle branch block Left anterior fascicular block Bifascicular block T wave abnormality, consider inferolateral ischemia Abnormal ECG
--- NOTE | 2017-11-12 22:50 | CP.PCM.PN ---
Subjective - Date & Time of Evaluation Date of Evaluation: 11/12/17 Time of Evaluation: 09:25 - Subjective Subjective: Patient seen and evaluated No cardiac events CAD DVT complete heart block s/p PPM Possible d/c tomorrow Objective - Vital Signs/Intake and Output Vital Signs (last 24 hours): Temp Pulse Resp BP Pulse Ox 98 F 88 20 130/63 96 11/12/17 16:57 11/12/17 16:57 11/12/17 16:57 11/12/17 16:57 11/12/17 16:57 Intake and Output: 11/12/17 11/13/17 18:59 06:59 Intake Total 350 Balance 350 - Medications Medications: Current Medications Acetaminophen (Tylenol 325mg Tab) 650 mg PO Q6 PRN PRN Reason: Pain, moderate (4-7) Last Admin: 11/12/17 08:33 Dose: 650 mg Aspirin (Ecotrin) 81 mg PO DAILY [facility] Last Admin: 11/12/17 09:05 Dose: 81 mg Enoxaparin Sodium (Lovenox) 90 mg SC Q12 [facility] Last Admin: 11/08/17 22:00 Dose: 90 mg Insulin Human Regular (Novolin R) 0 unit SC ACHS [facility] PRN Reason: Protocol Last Admin: 11/12/17 21:04 Dose: Not Given Lisinopril (Zestril) 2.5 mg PO DAILY [facility] Last Admin: 11/12/17 09:05 Dose: 2.5 mg Rosuvastatin Calcium (Crestor) 10 mg PO HS [facility] Last Admin: 11/12/17 21:03 Dose: 10 mg - Labs Labs: 11/10/17 06:11 11/10/17 06:11 PT 12.8 SECONDS (9.7-12.2) H 11/08/17 08:29 INR 1.1 11/08/17 08:29 APTT 21 SECONDS (21-34) 11/08/17 08:29
--- NOTE | 2017-11-12 22:52 | CARDCATH ---
PROCEDURE DATE: 11/09/2017 PROCEDURES: 1. Left heart catheterization. 2. Coronary angiogram. 3. Radiological supervision and radiological interpretation of the coronary angiogram and left heart catheterization. REFERRING PHYSICIAN: Aileen Woo MD PERFORMING PHYSICIAN: Catarino Haynes MD CLINICAL INDICATIONS: 1. Complete heart block. 2. Chest pain. 3. Hypertension. 4. Diabetes. 5. Hyperlipidemia. PROCEDURE: After informed consent, the patient was prepped and draped in the usual sterile fashion. A 2% lidocaine was given in the right groin for local anesthesia. Using micropuncture technique, a 6-Australian sheath was introduced into the right common femoral artery. A JL4 6-Australian diagnostic catheter engaged into left main coronary artery. Contrast injected and left coronary angiogram was done. Then JR4 6-Australian diagnostic catheter crossed into the left ventricle. LV end-diastolic pressure was measured. Contrast injected and the LV angiogram was done. Then the catheter was pulled back across the aortic valve. Gradient across the aortic valve was measured. Then the same catheter was engaged into the right coronary artery. Contrast injected and right coronary angiogram was performed. Radiological supervision and radiological interpretation of the coronary angiogram and left heart catheterization was done. The patient tolerated the procedure well. FINDINGS: 1. Left main coronary artery is patent. 2. Left anterior descending coronary artery is a large artery. Mid LAD has a 70% focal stenosis. Diagonal branches are patent. 3. The patient has a dominant left circumflex system. Proximal left circumflex has a 90% stenosis. Distal left circumflex has a 95% stenosis. 4. Right coronary artery is nondominant. Multiple 90% to 95% lesions noted. 5. LV ejection fraction is approximately 60%. Inferobasal segment appears akinetic. EDP is 25. No gradient across the aortic valve. CONCLUSIONS: 1. Triple vessel disease as described above. 2. Normal LV systolic function. The patient presented with complete heart block. Troponins were negative. The patient also has a left leg DVT. At present, recommend permanent pacemaker placement and anticoagulation for the DVT. The patient is chest pain free. Continue medical management for 1 month. After 1 month, we will electively do the staged intervention of the LAD and circumflex. Catarino Haynes MD
[2017-11-13 07:56] VITALS: BP 149/70; TEMP 98.7; O2SAT 96
[2017-11-13] MEDS: (Novolin R) Insulin Human Regular 100 units/ml vial SC SCH ×2 (08:07→11:57)
--- NOTE | 2017-11-13 08:17 | CP.PCM.PN ---
Subjective - Date & Time of Evaluation Date of Evaluation: 11/13/17 Time of Evaluation: 09:33 - Subjective Subjective: PGY 2 Med Note- Dr. Woo's service Patient seen and examined in no apparent acute distress. Patient indicates desire to go home. Patient states that he was previously on warfarin for a DVT that he developed back in 2009. He continued with treatment until it was discontinued. Patient currently denies headaches, chest pain, chills, palpitations, nausea, vomiting or diarrhea at this time. Objective - Vital Signs/Intake and Output Vital Signs (last 24 hours): Temp Pulse Resp BP Pulse Ox 98.7 F 74 20 149/70 96 11/13/17 07:00 11/13/17 07:00 11/13/17 07:00 11/13/17 07:00 11/13/17 07:00 - Medications Medications: Current Medications Acetaminophen (Tylenol 325mg Tab) 650 mg PO Q6 PRN PRN Reason: Pain, moderate (4-7) Last Admin: 11/13/17 00:00 Dose: 650 mg Aspirin (Ecotrin) 81 mg PO DAILY [facility] Last Admin: 11/12/17 09:05 Dose: 81 mg Enoxaparin Sodium (Lovenox) 90 mg SC Q12 [facility] Last Admin: 11/08/17 22:00 Dose: 90 mg Insulin Human Regular (Novolin R) 0 unit SC ACHS [facility] PRN Reason: Protocol Last Admin: 11/13/17 08:07 Dose: Not Given Lisinopril (Zestril) 2.5 mg PO DAILY [facility] Last Admin: 11/12/17 09:05 Dose: 2.5 mg Rosuvastatin Calcium (Crestor) 10 mg PO HS [facility] Last Admin: 11/12/17 21:03 Dose: 10 mg - Labs Labs: 11/10/17 06:11 11/10/17 06:11 PT 12.8 SECONDS (9.7-12.2) H 11/08/17 08:29 INR 1.1 11/08/17 08:29 APTT 21 SECONDS (21-34) 11/08/17 08:29 - Constitutional Appears: Non-toxic, No Acute Distress - Head Exam Head Exam: ATRAUMATIC, NORMAL INSPECTION - Eye Exam Eye Exam: EOMI, Normal appearance Pupil Exam: NORMAL ACCOMODATION - ENT Exam ENT Exam: Mucous Membranes Moist - Neck Exam Neck Exam: Full ROM - Respiratory Exam Respiratory Exam: NORMAL BREATHING PATTERN - Cardiovascular Exam Cardiovascular Exam: +S1, +S2 - GI/Abdominal Exam GI & Abdominal Exam: Soft, Normal Bowel Sounds. absent: Tenderness - Extremities Exam Extremities Exam: Full ROM, Normal Capillary Refill. absent: Pedal Edema, Tenderness - Back Exam Back Exam: Full ROM, NORMAL INSPECTION - Neurological Exam Neurological Exam: Alert, Awake, Oriented x3 - Psychiatric Exam Psychiatric exam: Normal Affect, Normal Mood - Skin Skin Exam: Dry, Warm Assessment and Plan - Assessment and Plan (Free Text) Assessment: Third degree AV block Permanent Pacemaker inserted 11/09/17 Patient to follow up outpatient. Dr Haynes, [employer] and Dr. Macedo, EP on the case. F/U outpatient recommendations Left Lower Extremity DVT US Duplex LLE positive for DVT Therapeutic Lovenox restarted 11/13/17 per Cardiology recommendations. Patient to continue outpatient with Eliquis with instructions as noted below. CAD Cardiac cath on 11/09/17 shows chronic CAD however emergent stenting not needed at this time. Patient to follow up with Dr. Haynes for future management. Echo shows EF 40% and hypokinesis ASA 81mg PO Daily Crestor 10mg PO daily HTN Normotensive Lisinopril 2.5mg PO daily Cont to monitor Diabetes Mellitus Accuchecks ISS Cont to monitor Prophylactic Measure Lovenox Q12 SC (Therapeutic dosing) SCDs contraindicated in light of DVT Discharge Instructions Patient is medically stable for discharge home. Patient to follow up with Dr. Macedo outpatient for Wound care follow up monday11.13.17 @ [address] [place] [address]/Tel: [phone]. Patient should call to set up an appointment. Patient should also follow up with Design [employer] Dr. Haynes within the next two weeks for follow up care. Patient should follow up with Dr. Woo next week as previously discussed. Patient to begin Eliquis for treatment of DVT. He should take 10 mg twice a day for one week and then transition to 5 mg twice a day for the remaining duration of course. Patient may resume other home medications. If symptoms return, go to the emergency room. Instructions explained to patient who is aware. Discussed w/ attending. Management and planning per Dr. Woo
[2017-11-13 08:59] VITALS: PULSE 82
[2017-11-13] MEDS: Enoxaparin 100 mg Syringe SC SCH (09:07)
--- NOTE | 2017-11-13 09:25 | PN ---
DATE: 11/10/2017 SUBJECTIVE: Started supportive care. Continue treatment. Aileen Woo MD
--- NOTE | 2017-11-13 09:26 | PN ---
DATE: 11/12/2017 The patient on supportive care ____. Aileen Woo MD [facility] # [phone]
--- NOTE | 2017-11-13 09:35 | CP.PCM.PN ---
<Skyler Kimble - Last Filed: 11/13/17 15:25> Subjective - Date & Time of Evaluation Date of Evaluation: 11/13/17 Time of Evaluation: 09:32 - Subjective Subjective: PGY-[address] Haynes's Cardiology service Pt seen and examined at bedside. Nursing reports no acute events overnight. Patient found sitting at bedside. Denies chest pain, palpitations, SOB, and is anxious to be discharged. Objective - Vital Signs/Intake and Output Vital Signs (last 24 hours): Temp Pulse Resp BP Pulse Ox 98.7 F 82 20 149/70 96 11/13/17 07:00 11/13/17 07:05 11/13/17 07:00 11/13/17 07:00 11/13/17 07:00 - Medications Medications: Current Medications Acetaminophen (Tylenol 325mg Tab) 650 mg PO Q6 PRN PRN Reason: Pain, moderate (4-7) Last Admin: 11/13/17 00:00 Dose: 650 mg Aspirin (Ecotrin) 81 mg PO DAILY [facility] Last Admin: 11/13/17 09:07 Dose: 81 mg Enoxaparin Sodium (Lovenox) 90 mg SC Q12 [facility] Last Admin: 11/13/17 09:07 Dose: 90 mg Insulin Human Regular (Novolin R) 0 unit SC ACHS [facility] PRN Reason: Protocol Last Admin: 11/13/17 08:07 Dose: Not Given Lisinopril (Zestril) 2.5 mg PO DAILY [facility] Last Admin: 11/13/17 09:07 Dose: 2.5 mg Rosuvastatin Calcium (Crestor) 10 mg PO HS [facility] Last Admin: 11/12/17 21:03 Dose: 10 mg - Labs Labs: 11/10/17 06:11 11/10/17 06:11 PT 12.8 SECONDS (9.7-12.2) H 11/08/17 08:29 INR 1.1 11/08/17 08:29 APTT 21 SECONDS (21-34) 11/08/17 08:29 - Additional Findings Additional findings: - Constitutional Appears: Non-toxic, No Acute Distress - Head Exam Head Exam: ATRAUMATIC, NORMAL INSPECTION - Eye Exam Eye Exam: EOMI. absent: Scleral icterus Pupil Exam: PERRL - ENT Exam ENT Exam: Mucous Membranes Moist - Respiratory Exam Respiratory Exam: Clear to Ausculation Bilateral, NORMAL BREATHING PATTERN - Cardiovascular Exam Cardiovascular Exam: REGULAR RHYTHM, +S1, +S2 - GI/Abdominal Exam GI & Abdominal Exam: Soft, Normal Bowel Sounds. absent: Tenderness - Extremities Exam Extremities Exam: Normal Inspection. absent: Pedal Edema, Tenderness Additional comments: Right groin dressing c/d/i - Back Exam Back Exam: absent: CVA tenderness (L), CVA tenderness (R) - Neurological Exam Neurological Exam: Alert, Awake, Oriented x3 - Psychiatric Exam Psychiatric exam: Normal Affect, Normal Mood - Skin Skin Exam: Normal Color, Warm Assessment and Plan - Assessment and Plan (Free Text) Plan: Third degree AV block Admitted to ICU, downgraded to tele (11/10) Dr Haynes Neck Pinner/EP Dr. Macedo consulted -Permanent Pacemaker inserted 11/09/17 - Ancef course completed Left Lower Extremity DVT US Duplex LLE: positive for DVT Therapeutic Lovenox while in hospital - [facility] on discharge CAD Cardiac cath on 11/09/17 shows chronic CAD but no need for emergent stenting. He may follow up with Dr. Haynes for stenting in the future. Echo shows EF 40% and hypokinesis ASA 81mg PO Daily HTN Well controlled; med team holding home Norvasc Lisinopril 2.5mg PO daily HLD Crestor 10mg PO daily Disposition: Pt for d/c home today on [facility]. Will f/u with Dr. Haynes in two weeks time for follow up of CAD blockages found on cath. Pt aware of importance of following up with Dr. Haynes. Skyler Kimble PGY-2 D/w Dr. Haynes <Catarino Haynes - Last Filed: 11/13/17 22:16> Objective - Vital Signs/Intake and Output Vital Signs (last 24 hours): Temp Pulse Resp BP Pulse Ox 98.7 F 82 20 149/70 96 11/13/17 07:00 11/13/17 07:05 11/13/17 07:00 11/13/17 07:00 11/13/17 07:00 Intake and Output: 11/13/17 11/14/17 18:59 06:59 Intake Total 400 Balance 400 - Labs Labs: 11/10/17 06:11 11/10/17 06:11 PT 12.8 SECONDS (9.7-12.2) H 11/08/17 08:29 INR 1.1 11/08/17 08:29 APTT 21 SECONDS (21-34) 11/08/17 08:29 Assessment and Plan - Assessment and Plan (Free Text) Plan: Patient seen and evaluated personally by me Plan of care d/w the medical secretary and as documented
--- NOTE | 2017-11-17 10:46 | DS ---
HOSPITAL COURSE: Mr. Lowe admitted to the hospital with chief complaint of weakness, dizziness. The patient found to be in complete heart block. The patient had an emergency pacemaker. The patient is still in the ICU, permanent pacemaker inserted. The patient has DVT, started on anticoagulation. The patient discharged to be followed as an outpatient. Aileen Woo MD
== END 2017-11-13 12:40 | disposition home or self-care (01) | DRG 243 ==
LOC: C.ER 07:41 → C.9I 08:11 → C.6T 11-10 21:43
PROVIDERS: ADMIT Internal Medicine Pulmonary Disease; ATTEND Internal Medicine Pulmonary Disease
PROC: 02H63JZ Insertion of Pacemaker Lead into Right Atrium, Percutaneous Approach (ICD-10-PCS; 2017-11-09)
PROC: 02HK3JZ Insertion of Pacemaker Lead into Right Ventricle, Percutaneous Approach (ICD-10-PCS; 2017-11-09)
PROC: 4A023N7 Measurement of Cardiac Sampling and Pressure, Left Heart, Percutaneous Approach (ICD-10-PCS; 2017-11-09)
PROC: B211YZZ Fluoroscopy of Multiple Coronary Arteries using Other Contrast (ICD-10-PCS; 2017-11-09)
PROC: B215YZZ Fluoroscopy of Left Heart using Other Contrast (ICD-10-PCS; 2017-11-09)
PROC: 0JH606Z Insertion of Pacemaker, Dual Chamber into Chest Subcutaneous Tissue and Fascia, Open Approach (ICD-10-PCS; principal; 2017-11-09 09:00)
DX: I44.2 Atrioventricular block, complete (principal); I82.432 Acute embolism and thrombosis of left popliteal vein; I48.91 Unspecified atrial fibrillation; I25.10 Atherosclerotic heart disease of native coronary artery without angina pectoris; I10 Essential (primary) hypertension; I95.9 Hypotension, unspecified; E04.9 Nontoxic goiter, unspecified; E11.9 Type 2 diabetes mellitus without complications; E78.00 Pure hypercholesterolemia, unspecified; F17.210 Nicotine dependence, cigarettes, uncomplicated; Z79.4 Long term (current) use of insulin

== ENCOUNTER 2017-12-12 16:47 | Emergency (ER) | payer MEDICARE ==
--- NOTE | 2017-12-12 17:59 | C.PDOC ---
History Of Present Illness 77 y/o male with history of HTN, DM, pacemaker placed and recent DVT presents to ED with c/o generalized weakness developed earlier but resolved as per patient. At ED patient denies fever, chills, numbness, headache or any other complaints at this time. Time Seen by Provider: 12/12/17 17:34 Chief Complaint (Nursing): Chest Pain History Per: Patient History/Exam Limitations: no limitations Onset/Duration Of Symptoms: Hrs Current Symptoms Are (Timing): Still Present Past Medical History Reviewed: Historical Data, Nursing Documentation, Vital Signs Vital Signs: Last Vital Signs Temp 97.9 F 12/12/17 19:39 Pulse 81 12/12/17 19:39 Resp 19 12/12/17 19:39 BP 148/78 12/12/17 19:39 Pulse Ox 95 12/12/17 19:39 - Medical History PMH: HTN, Hypercholesterolemia Surgical History: Pacemaker - [facility] Procedures FLUOROSCOPY OF LEFT HEART USING OTHER CONTRAST (11/08/17) FLUOROSCOPY OF MULTIPLE CORONARY ARTERIES USING OTH CONTRAST (11/08/17) INSERT PACE. DUAL HAYDE IN CHEST SUBCU/FASCIA, OPEN (11/08/17) INSERTION OF PACEMAKER LEAD INTO R VENTRICLE, PERC APPROACH (11/08/17) INSERTION OF PACEMAKER LEAD INTO RIGHT ATRIUM, PERC APPROACH (11/08/17) MEASURE OF CARDIAC SAMPL & PRESSURE, L HEART, PERC APPROACH (11/08/17) Family History: States: No Known Family Hx - Social History Hx Alcohol Use: Yes Hx Substance Use: No - Immunization History Hx Tetanus Toxoid Vaccination: No Hx Influenza Vaccination: No Hx Pneumococcal Vaccination: No Review Of Systems Constitutional: Negative for: Fever, Chills Cardiovascular: Negative for: Chest Pain Respiratory: Negative for: Shortness of Breath Gastrointestinal: Negative for: Nausea, Vomiting Skin: Negative for: Rash Neurological: Positive for: Weakness. Negative for: Numbness Physical Exam - Physical Exam Appears: Non-toxic, No Acute Distress Skin: Warm, Dry, No Rash Head: Atraumatic, Normacephalic Eye(s): bilateral: Normal Inspection Oral Mucosa: Moist Neck: Normal ROM, Supple Cardiovascular: Rhythm Regular Respiratory: Normal Breath Sounds, No Rales, No Rhonchi, No Wheezing Gastrointestinal/Abdominal: Soft, No Tenderness, No Guarding, No Rebound Neurological/Psych: Oriented x3, Normal Speech, Normal Cognition, Normal Motor, Normal Sensation ED Course And Treatment - Laboratory Results Result Diagrams: 12/12/17 18:32 12/12/17 18:32 ECG: Interpreted By Me, Viewed By Me Interpretation Of ECG: Paced rhythm Rate From EC (bpm) O2 Sat by Pulse Oximetry: 98 (ra) Pulse Ox Interpretation: Normal Medical Decision Making Medical Decision Making: pt with generalzied weakness/near syncope. ?cp earlier. pt with known cad needs planned pci. also with pacemaker. requested admission for pacemake interogation and cards eval for serial trop as recent event <6 hour onset. pt refuses signs ama Disposition - Disposition Referrals: Catarino Haynes MD [Staff Provider] - Disposition: AGAINST MEDICAL ADVICE Disposition Time: 07:00 Condition: STABLE Additional Instructions: please follow up with your doctor. return to er with worsening symptoms or concerns. please see specialist. Instructions: Chest Pain, Generalized Weakness, Leaving Against Medical Advice , Near Fainting, Weakness (ED) Forms: [employer] ([place]) - Clinical Impression Clinical Impression: Weakness - Scribe Statement The provider has reviewed the documentation as recorded by the Scribindra Clemente All medical record entries made by the Scribe were at my direction and personally dictated by me. I have reviewed the chart and agree that the record accurately reflects my personal performance of the history, physical exam, medical decision making, and the department course for this patient. I have also personally directed, reviewed, and agree with the discharge instructions and disposition.
[2017-12-12 18:36] LABS: BASO # 0.1 K/uL (0.0-0.2); EOS % 0.3 % (0.0-4.0); HEMOGLOBIN 10.1 g/dL (12.0-18.0); LYMPH % 15.3 % (20.0-40.0); MEAN CELL VOLUME 85.4 fL (80.0-94.0); MEAN CORPUSCULAR HEMOGLOBIN 28.1 pg (27.0-31.0); MEAN CORPUSCULAR HGB CONC 32.8 g/dL (33.0-37.0); MEAN PLATELET VOLUME 8.1 fL (7.2-11.7); MONO # 0.3 K/uL (0.0-0.8); MONO % 4.9 % (0.0-10.0); NEUT # 5.1 K/uL (1.8-7.0); NEUT % 78.5 % (50.0-75.0); RBC 3.61 Mil/uL (4.40-5.90); RED CELL DISTRIBUTION WIDTH 14.4 % (11.5-14.5); WHITE BLOOD COUNT 6.5 K/uL (4.8-10.8)
[2017-12-12 18:43] LABS: INR 1.4; PROTHROMBIN TIME 14.8 SECONDS (9.7-12.2)
[2017-12-12 18:50] LABS: ALBUMIN 3.7 g/dL (3.5-5.0); ALT/SGPT 15 U/L (21-72); AST/SGOT 17 U/L (17-59); BLOOD UREA NITROGEN 22 mg/dL (9-20); CALCIUM 9.4 mg/dl (8.6-10.4); GFR AFRICAN-AMERICAN > 60; GFR NON-AFRICAN AMERICAN > 60
[2017-12-12 19:43] VITALS: BP 148/78; PULSE 81; RESP 19; TEMP 97.9
[2017-12-12 22:20] VITALS: O2SAT 98
--- NOTE | 2017-12-13 08:37 | RAD ---
PROCEDURE: CHEST RADIOGRAPH, 1 VIEW HISTORY: chest pain COMPARISON: Chest radiograph dated 11/08/2017. FINDINGS: LUNGS: Clear. PLEURA: No pneumothorax or pleural fluid seen. CARDIOVASCULAR: New left subclavian access pacemaker with leads terminating in the right atrium and right ventricle. Cardiomediastinal silhouette stably enlarged. OSSEOUS STRUCTURES: Unchanged. VISUALIZED UPPER ABDOMEN: Normal. OTHER FINDINGS: Interval removal of right internal jugular access transvenous pacemaker. IMPRESSION: No active disease.
--- NOTE | 2017-12-15 17:06 | CARD ---
APPROVED REPORT EKG Measurement Heart [id number] <Conclusion> Atrial-sensed ventricular-paced rhythm Abnormal ECG
== END 2017-12-12 19:44 | disposition left against medical advice (07) ==
LOC: C.ER 16:47
DX: R53.1 Weakness (principal)

== ENCOUNTER 2018-04-25 13:04 | Emergency (ER) | payer MEDICARE ==
[2018-04-25 13:18] VITALS: TEMP 98.1
--- NOTE | 2018-04-25 13:59 | RAD ---
Date of service: 04/25/2018 PROCEDURE: CHEST RADIOGRAPH, 1 VIEW HISTORY: r/o infiltrate COMPARISON: 12/12/2017 FINDINGS: LUNGS: Clear. PLEURA: No pneumothorax or pleural fluid seen. CARDIOVASCULAR: Permanent pacemaker noted. Normal heart size. OSSEOUS STRUCTURES: No significant abnormalities. VISUALIZED UPPER ABDOMEN: Normal. OTHER FINDINGS: None. IMPRESSION: No active disease.
[2018-04-25 14:37] LABS: BASO % 0.8 % (0.0-2.0); EOS % 1.2 % (0.0-4.0); HEMOGLOBIN 10.1 g/dL (12.0-18.0); LYMPH # 1.1 K/uL (1.0-4.3); LYMPH % 26.5 % (20.0-40.0); MEAN CELL VOLUME 85.5 fL (80.0-94.0); MEAN CORPUSCULAR HEMOGLOBIN 27.9 pg (27.0-31.0); MEAN CORPUSCULAR HGB CONC 32.6 g/dL (33.0-37.0); MONO # 0.4 K/uL (0.0-0.8); MONO % 9.5 % (0.0-10.0); NEUT # 2.6 K/uL (1.8-7.0); NRBC % 0.1 % (0.0-2.0); RBC 3.61 Mil/uL (4.40-5.90); WHITE BLOOD COUNT 4.1 K/uL (4.8-10.8)
--- NOTE | 2018-04-25 14:37 | CT ---
Date of service: 04/25/2018 PROCEDURE: CT HEAD WITHOUT CONTRAST. HISTORY: r/o ICH COMPARISON: None available. TECHNIQUE: Axial computed tomography images were obtained through the head/brain without intravenous contrast. Radiation dose: Total exam DLP = 1018.75 mGy-cm. This CT exam was performed using one or more of the following dose reduction techniques: Automated exposure control, adjustment of the mA and/or kV according to patient size, and/or use of iterative reconstruction technique. FINDINGS: HEMORRHAGE: No intracranial hemorrhage. BRAIN: Diffuse atrophy with prominence of the ventricles and sulci noted. No mass effect or edema. Scattered periventricular and subcortical white matter hypodensities, which are nonspecific, but often seen with chronic microvascular ischemic disease. Please note that MRI with diffusion imaging is more sensitive in the detection of acute ischemic event. VENTRICLES: No hydrocephalus. CALVARIUM: Unremarkable. PARANASAL SINUSES: Unremarkable as visualized. No significant inflammatory changes. MASTOID AIR CELLS: Unremarkable as visualized. No inflammatory changes. OTHER FINDINGS: None. IMPRESSION: No acute intracranial pathology identified. Findings as above.
[2018-04-25 14:50] LABS: ALB/GLOB RATIO 1.3 (1.0-2.1); ALBUMIN 3.8 g/dL (3.5-5.0); ALT/SGPT 16 U/L (21-72); AST/SGOT 13 U/L (17-59); BLOOD UREA NITROGEN 19 mg/dL (9-20); CALCIUM 9.2 mg/dl (8.6-10.4); GFR NON-AFRICAN AMERICAN > 60
[2018-04-25 15:20] LABS: T3 1.57 nmol/L (1.49-2.60)
--- NOTE | 2018-04-25 15:37 | C.PDOC ---
History Of Present Illness 77 y/o male presents to the ED complaining of a brief episode of feeling lightheaded just prior to arrival. States the symptoms lasted 2 seconds and resolved spontaneously. Patient was sitting when it occurred. Denies any associated pain, chest pain, palpitations, SOB, fever, or cough. Currently he is asymptomatic. Time Seen by Provider: 04/25/18 13:41 Chief Complaint (Nursing): Dizziness/Lightheaded History Per: Patient History/Exam Limitations: no limitations Onset/Duration Of Symptoms: Mins Current Symptoms Are (Timing): Gone Associated Symptoms Preceding Syncopal Episode: No Predromal Symptoms (Sudden Onset) Seizure Or Post-ictal Symptoms: None Fall Associated With With Symptoms: No, No Injury As Result Of Fall Past Medical History Reviewed: Historical Data, Nursing Documentation, Vital Signs Vital Signs: Last Vital Signs Temp 98.1 F 04/25/18 13:16 Pulse 77 04/25/18 13:16 Resp 20 04/25/18 13:16 BP 148/72 04/25/18 13:16 Pulse Ox 99 04/25/18 13:16 - Medical History PMH: HTN, Hypercholesterolemia Surgical History: Pacemaker - [facility] Procedures FLUOROSCOPY OF LEFT HEART USING OTHER CONTRAST (11/08/17) FLUOROSCOPY OF MULTIPLE CORONARY ARTERIES USING OTH CONTRAST (11/08/17) INSERT PACE. DUAL HAYDE IN CHEST SUBCU/FASCIA, OPEN (11/08/17) INSERTION OF PACEMAKER LEAD INTO R VENTRICLE, PERC APPROACH (11/08/17) INSERTION OF PACEMAKER LEAD INTO RIGHT ATRIUM, PERC APPROACH (11/08/17) MEASURE OF CARDIAC SAMPL & PRESSURE, L HEART, PERC APPROACH (11/08/17) Family History: States: Unknown Family Hx - Social History Hx Alcohol Use: No Hx Substance Use: No - Immunization History Hx Tetanus Toxoid Vaccination: No Hx Influenza Vaccination: No Hx Pneumococcal Vaccination: No Review Of Systems Except As Marked, All Systems Reviewed And Found Negative. Constitutional: Negative for: Fever, Chills Eyes: Negative for: Vision Change Cardiovascular: Positive for: Light Headedness (now resolved). Negative for: Chest Pain, Palpitations Respiratory: Negative for: Cough, Shortness of Breath Gastrointestinal: Negative for: Nausea, Vomiting Neurological: Negative for: Weakness, Numbness, Headache Physical Exam - Physical Exam Appears: Non-toxic, No Acute Distress Skin: Normal Color, Warm, Dry Head: Atraumatic, Normacephalic Eye(s): bilateral: Normal Inspection Oral Mucosa: Moist Neck: Normal ROM Chest: Symmetrical Cardiovascular: Rhythm Regular, No Murmur Respiratory: Normal Breath Sounds, No Accessory Muscle Use Gastrointestinal/Abdominal: Soft, No Tenderness, No Distention Extremity: Bilateral: Atraumatic, No Pedal Edema, Normal ROM Neurological/Psych: Oriented x3, Normal Speech ED Course And Treatment - Laboratory Results Result Diagrams: 04/25/18 14:33 04/25/18 14:33 ECG: Interpreted By Me, Viewed By Me ECG Rhythm: V Paced Interpretation Of ECG: Atrial sensed, ventricular paced Rate From EC (bpm) O2 Sat by Pulse Oximetry: 99 (RA) Pulse Ox Interpretation: Normal - CT Scan/US CT Head Other Rad Studies (CT/US): Read By Radiologist, Radiology Report Reviewed CT/US Interpretation: Roberts MD. Patient NameANGEL ROGERS / [id number] Abdullahi MD. Study [id number] 14:11:36Transcriber. Sex / AgeM / [id number] Singh MD. [facility]lica HillApproval [id number] 14:35:38. My Comment. Study Comments. Report. Date of service: 04/25/2018. PROCEDURE: CT HEAD WITHOUT CONTRAST. HISTORY: r/o ICH. COMPARISON: None available. TECHNIQUE: Axial computed tomography images were obtained through the head/brain without intravenous contrast. Radiation dose: Total exam DLP = 1018.75 mGy-cm. This CT exam was performed using one or more of the following dose reduction techniques: Automated exposure control, adjustment of the mA and/or kV according to patient size, and/or use of iterative reconstruction technique. FINDINGS: HEMORRHAGE: No intracranial hemorrhage. BRAIN: Diffuse atrophy with prominence of the ventricles and sulci noted. No mass effect or edema. Scattered periventricular and subcortical white matter hypodensities, which are nonspecific, but often seen with chronic microvascular ischemic disease. Please note that MRI with diffusion imaging is more sensitive in the detection of acute ischemic event. VENTRICLES: No hydrocephalus. CALVARIUM: Unremarkable. PARANASAL SINUSES: Unremarkable as visualized. No significant inflammatory changes. MASTOID AIR CELLS: Unremarkable as visualized. No inflammatory changes. OTHER FINDINGS: None. IMPRESSION: No acute intracranial pathology identified. Findings as above. Medical Decision Making Medical Decision Making: Initial Plan: --EKG --Blood work --Chest x-ray --Head CT Progress/Updates: Patient informed of negative results. On reevaluation patient remains asymptomatic, plan is to d/c home. Disposition - Disposition Referrals: Aileen Woo MD [Staff Provider] - Disposition: HOME/ ROUTINE Disposition Time: 15:20 Condition: GOOD Additional Instructions: SUE ORTIZ, thank you for letting us take care of you today. The emergency medical care you received today was directed at your acute symptoms. If you were prescribed any medication, please fill it and take as directed. It may take several days for your symptoms to resolve. Return to the Emergency Department if your symptoms worsen, do not improve, or if you have any other problems. Please contact your doctor or call one of the physicians/clinics you have been referred to that are listed on the Patient Visit Information form that is included in your discharge packet. Bring any paperwork you were given at discharge with you along with any medications you are taking to your follow up visit. Our treatment cannot replace ongoing medical care by a primary care provider outside of the emergency department. Thank you for allowing the [facility] team to be part of your care today. Follow up with your primary care doctor in 2-3 days for re-evaluation and further management. Instructions: Dizziness, Nonvertigo, (DC) Forms: [facility] Calendar (Nepali) - Clinical Impression Clinical Impression: Lightheadedness - Scribe Statement The provider has reviewed the documentation as recorded by the Scribe (Emily Dahl) Provider Attestation: All medical record entries made by the Scribe were at my direction and personally dictated by me. I have reviewed the chart and agree that the record accurately reflects my personal performance of the history, physical exam, medical decision making, and the department course for this patient. I have also personally directed, reviewed, and agree with the discharge instructions and disposition.
[2018-04-25 15:54] VITALS: BP 148/73; PULSE 83; RESP 18
[2018-04-25 16:37] VITALS: O2SAT 99
--- NOTE | 2018-04-27 11:47 | CARD ---
APPROVED REPORT Date of service: 04/25/2018 EKG Measurement Heart [id number] <Conclusion> Atrial-sensed ventricular-paced rhythm Abnormal ECG
== END 2018-04-25 15:53 | disposition home or self-care (01) ==
LOC: C.ER 13:04
DX: R42 Dizziness and giddiness (principal); I10 Essential (primary) hypertension; E78.00 Pure hypercholesterolemia, unspecified; Z95.0 Presence of cardiac pacemaker; F17.210 Nicotine dependence, cigarettes, uncomplicated